=== PATIENT | male | born 1950 | race Caucasian/White ===

== ENCOUNTER → 2017-04-09 | Outpatient (CLI) | payer OTHER, MEDICARE ==
[~2017-04-09] VITALS: Ht 185.4 cm; Wt 115.1 kg
[~2017-04-09] MED LIST: ALBUTEROL2.5 MG/0.1 INH; AMOXICILLIN 50500 M1 PO; CLONAZEPAM 1 MG1 M1 PO; FLUOXETINE HCL10 M1 PO; GABAPENTIN600 M1 PO; KLONIPIN PO; KLONOPIN1 MG PO; METHADONE HCL5 MG PO; NEURONTIN 300300 M1 PO; NUCYNTA ER100 MG PO; NUCYNTA100 MG PO; OXYCODONE-ACET1 EAC2 PO; OXYCODONE-ACET1 EACH PO; OXYCONTIN10 M1 PO; OXYCONTIN20 M1 PO; TRILEPTAL 300300 MG PO; TRILEPTAL600 MG PO; ZPAK PO
--- NOTE | ~2017-04-09 | HPC ---
[facility] [place] [address] PAIN MANAGEMENT CONSULTATION Name: CHICA PEACOCK Room #: REG [facility] MMarieBob.#: [id number] Admission: 04/09/17 Attend Phys: Dillan Fortune MD Discharge: Date of : 48 Report #: [id number] THIS REPORT FOR: //name// CC: [facility] physician/PCP Dillan Lucero MD DATE OF SERVICE: 04/09/2017 CHIEF COMPLAINT: Facial pain. FOLLOWUP HISTORY: The patient is a 66-year-old gentleman who has had a number of surgeries. He indicates that he had a sinus infection. It was fungal in nature. This was in 2009. Since that time, he has had frontal sinus pain secondary damage of the nerves in this area. He has undergone a number of treatments. Pain has waxed and waned. At this juncture, he is having continued pain, which he describes as a 10/10. Pain is made worse with cold weather, cold drinks and makes activities of daily living difficult secondary to this. 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 He has seen Dr. Luis Garcia in our pain clinic. This was in 2013. He states that he had seen Dr. Sierra in the past. He had taken Nucynta, nortriptyline, Lyrica, zolpidem, and Neurontin. Dilaudid, fentanyl, morphine, Opana, and Narcan had been tried in the past as well. PHYSICAL EXAMINATION: Blood pressure 142/97, pulse 81, respiratory rate 16, room air saturation is 97, height 6 feet 1 inch, weight 251 pounds, and BMI is 35. The patient complains of pain and discomfort in his left supraorbital area. Complains of a loud ringing sound, which is constant. IMPRESSION: 1. Chronic intractable atypical face pain. 2. Symptoms consistent with peripheral neuropathy. RECOMMENDATIONS: We discussed the patient's condition with him for 35 minutes. Given that he has a very complex pain situation and Dr. Garcia had seen him and provided a number of interventions, we will have him follow up with Dr. Garcia in the near future. By: [id number] Dillan Fortune MD /nt
[2017-04-09 12:44] VITALS: BP 142/97
== END ==
LOC: PAIN 07:21
DX: R51 Headache (principal)

== ENCOUNTER → 2017-04-26 | Outpatient (CLI) | payer OTHER, MEDICARE | LOC: PAIN 07:08 | DX: G50.1 Atypical facial pain (principal) ==

== ENCOUNTER → 2017-05-10 | Outpatient (CLI) | payer OTHER, MEDICARE ==
[~2017-05-10] VITALS: Ht 185.4 cm; Wt 113.0 kg
[~2017-05-10] MED LIST changes: +IBUPROFEN 200200 M1 PO; +NEURONTIN600 MG PO; +REMERON15 MG PO
--- NOTE | ~2017-05-10 | HPC ---
[facility] [place] [address] PAIN MANAGEMENT CONSULTATION Name: CHICA PEACOCK [id number] Admission: 05/10/17 Attend Phys: Luis Garcia MD Discharge: Date of : 48 Report #: [id number] THIS REPORT FOR: //name// CC: [facility] physician/PCP Luis LEAHY MD DATE OF SERVICE: 05/10/2017 DATE OF REGISTRATION: 05/10/2017. REASON FOR VISIT: Followup visit for atypical facial pain and dysesthesia. SUBJECTIVE: The patient returns to the pain clinic today. I started him on a very small dose of methadone beginning at 2.5 mg increasing the dose gradually. He was unable to tolerate the medication, took it for only a couple of days and had sort of some bizarre side effects including feeling of claustrophobia and irritation. He discontinued it, and I do not think we will reinitiate therapy at a lower dose with methadone given the current climate for opioids. Please revert to previous dictations for a number of medicines that he has been on over the years under the care of other physicians including Dr. Jesus Sierra in [place]. He reports today that his pain or dysesthesia is 8/10. This is described as a loud, buzzing, or ringing sensation that occurs in the left frontal region, periorbital near the frontal sinus. It tends to be worse after sleep. He describes it as constant, although it varies in intensity. Often times, the pain is better by the end of the day. He falls asleep, and when he wakes up, it is back again. Other way that he described, it was like an electrical cord being plugged into the area above his eye. His affect is pleasant, but a bit depressed, and he acknowledges that he has had nervousness, depression and insomnia as well as these unusual headaches. He is currently not on any antidepressant medication and has had some trials with tricyclic antidepressants and SSRI medicines. CURRENT MEDICINES: Ibuprofen 200 mg b.i.d. and gabapentin 600 mg b.i.d. PHYSICAL EXAMINATION: GENERAL: Pleasant, but depressed affect. VITAL SIGNS: Blood pressure is 134/60, heart rate 77, respirations 16, and BMI is 32.9. HEENT: He has no palpable discomfort. No obvious external changes of the skin. There is no allodynia noted today. The conjunctivae are reddened bilaterally. Pupils are equal, round, and reactive to light. EOMs are intact. Mucous membranes are moist. [address] [address] PAIN MANAGEMENT CONSULTATION Name: CHICA PEACOCK [id number] Admission: 05/10/17 Attend Phys: Luis Garcia MD Discharge: Date of : 48 Report #: [id number] IMPRESSION: Atypical facial pain with dysesthetic ringing, buzzing; scored as an 8/10 on the pain intensity scale. RECOMMENDATIONS: I will give one final trial of medication. Then, I have suggested that he consider a consultation with Dr. Dwain Napoles. I am not sure if there is a neurosurgical approach to this, although there have been many recent breakthroughs in the use of deep brain stimulation which seems aggressive for this condition, but he reports that it is dramatic to him and affecting his life. I have initiated Remeron or mirtazapine at 7.5 mg at bedtime. We will increase perhaps to 1 full tablet of 15 mg at bedtime. If ineffective, he is instructed to try and continue the medication for up to 6 weeks. By: [id number] Luis Garcia MD /nt
[2017-05-10 12:38] VITALS: BP 134/60
== END | disposition home or self-care (01) ==
LOC: PAIN 07:24
DX: G50.1 Atypical facial pain (principal); Z68.32 Body mass index [BMI] 32.0-32.9, adult; Z79.899 Other long term (current) drug therapy; F32.9 Major depressive disorder, single episode, unspecified; Z87.891 Personal history of nicotine dependence

== ENCOUNTER → 2017-05-27 | Outpatient (CLI) | payer OTHER, MEDICARE ==
[~2017-05-27] VITALS: Ht 185.4 cm; Wt 117.0 kg
--- NOTE | ~2017-05-27 | HPC ---
[facility] [address] [place] [address] PAIN MANAGEMENT CONSULTATION Name: CHICA PEACOCK Room #: REG [facility] MMarie.#: [id number] Admission: 05/27/17 Attend Phys: Luis Garcia MD Discharge: Date of : 48 Report #: [id number] THIS REPORT FOR: //name// CC: [facility] physician/PCP Dwain Lucero MD DATE OF SERVICE: 05/27/2017 Followup visit for atypical facial pain and dysesthesias. The patient returns to pain clinic today for 25-minute consultation regarding medication. He continues to have low acceptance of his long chronic ongoing pain. Part of this is a very difficult diagnosis and difficult to understand exactly what the mechanism of his pain is. As described infrequently, it has a bizarre dysesthetic sensation with a feeling of claustrophobia, irritation and burning. He has a hard time describing it to me. He oftentimes uses sounds such as buzzing or ringing occurring in the left frontal region near the frontal sinus. It is described thoroughly throughout my record. We tried a number of different medications and most recently, I placed him on Remeron, which is now at 15 mg at bedtime. He actually feels that this antidepressant may be helping some. He has a plan to follow with Dr. Lucero. I have also had a lengthy discussion with him today about managing his medication with small amounts of an opioid medication such as oxycodone. We had a long talk about the opioid crisis. As he review his medications and uses in the past, opioids have provided some of the best relief for him with a few side effects. By using 5 mg of oxycodone 3 times daily, would use about 20 morphine milligram equivalents, a very modest dose and I think that if he manages this carefully, it will reduce his sensations of discomfort enough that he can move forward. I counseled him extensively today about learning to live with his sensation and to accept this as a chronic condition that he will probably have to deal with indefinitely. I think that is important I do not think he has moved to that point yet. We certainly have found no quick answer or care for this intractable discomfort. PHYSICAL EXAMINATION: He seemed a little more resigned to our discussion today. His blood pressure 154/76, heart rate 82, respirations 20. BMI of 34. He has bilateral scleral and conjunctival redness. It is a little better today. His pupils are around, reactive to light. EOMs are intact. Mucous membranes are moist. [facility] [address] [place] [address] PAIN MANAGEMENT CONSULTATION Name: CHICA PEACOCK Room #: REG [facility].#: [id number] Admission: 05/27/17 Attend Phys: Luis Garcia MD Discharge: Date of : 48 Report #: [id number] IMPRESSION: Atypical facial pain with dysesthesia. PLAN: Continue on the Remeron 50 mg at bedtime and oxycodone 5/325 one-half to one tablet t.i.d. Followup visit in 2 months. Two months of medication were provided. By: [id number] Luis Garcia MD /nt
[2017-05-27 12:50] VITALS: BP 154/76
== END ==
LOC: PAIN 06:37
DX: R20.8 Other disturbances of skin sensation (principal)

== ENCOUNTER → 2017-08-13 | Outpatient (CLI) | payer OTHER, MEDICARE ==
[~2017-08-13] VITALS: Ht 185.4 cm; Wt 113.0 kg
[~2017-08-13] MED LIST changes: +DOLOPHINE HCL5 MG PO; +NUCYNTA ER200 MG PO; +TRAMADOL 50 MG50 MG PO; +TYLENOL EXTRA500 MG PO; +XTAMPZA ER9 MG PO
--- NOTE | ~2017-08-13 | HPC ---
[facility] [address] [place] [address] PAIN MANAGEMENT CONSULTATION Name: MADONNACHICA Room #: REG [facility] MMarie.#: [id number] Admission: 08/13/17 Attend Phys: Laureano Taylor DO Discharge: Date of : 49 Report #: [id number] THIS REPORT FOR: //name// CC: [facility] physician/PCP Laureano Taylor PAIN CLINIC NOTE The patient is a 66-year-old gentleman, typically treated by Dr. Luis Garcia for left hemifacial atypical pain requiring complex medication management. I saw the patient one time on 07/16/2017. We elected to trial rotation, he has been on a multiplicity of medications originally from Dr. Andrew Sierra including Nucynta. He had been fairly aggressively dosed with this 100 mg up to 6 a day. He had filled Embeda and Fentora as well. He had a ketamine trial with no efficacy. Last visit, he was taking oxycodone at 5 mg t.i.d. with some help, but he has end of dose failure. We elected to trial a long-acting oxycodone, Xtampza ER 9 mg b.i.d. Tramadol for breakthrough pain. The patient returns to pain clinic today noting that he did have sinus surgery with Dr. Lucero in July. He stopped taking his Remeron. Still complains of a "buzzing" sensation in his head and atypical left hemifacial pain. He feels that the Xtampza ER is not helpful. He rates his pain as 6-7 on a VAS. Physical exam is essentially unchanged from last visit. We again had a prolonged visit from 10:42-11:10 greater than 50% of the 25+ minutes visit was spent counseling the patient. The patient claims that Dr. Lucero recommended that he start on clonazepam and go back to short acting opiates. I find this to be not a great advice. As I noted in my prior dictation concern for aggressive use of short-acting opiates, which has been pursued with the patient in the past can promote habituation issues. After a long discussion, we have elected to trial rotating back to Nucynta, but simply use a 200 mg extended release tablet. If, however, this causes an onerous cost to the patient, I have also provided the patient with a prescription for methadone 5 mg to be used t.i.d. I will have the patient follow up in 4 weeks for reevaluation. We will have him bring back whichever prescription was not filled. <ELECTRONICALLY SIGNED> By: Laureano Taylor DO 08/18/17 [id number] Laureano Taylor DO /nt
[2017-08-13 10:26] VITALS: BP 129/72
== END ==
LOC: PAIN 06:57
DX: G50.1 Atypical facial pain (principal); Z79.899 Other long term (current) drug therapy

== ENCOUNTER → 2017-09-09 | Outpatient (CLI) | payer OTHER, MEDICARE ==
[~2017-09-09] VITALS: Ht 185.4 cm; Wt 112.5 kg
[~2017-09-09] MED LIST changes: +OXYCODONE HCL E20 MG PO; +OXYCODONE HCL20 M1 PO; +PROZAC10 M1 PO
--- NOTE | ~2017-09-09 | HPC ---
[facility] [address] [place] [address] PAIN MANAGEMENT CONSULTATION Name: MADONNACHICA LERMA Room #: REG [facility] MMarie.#: [id number] Admission: 09/09/17 Attend Phys: Laureano Taylor DO Discharge: Date of : 48 Report #: [id number] THIS REPORT FOR: //name// CC: [facility] physician/PCP Jesus Taylor HISTORY OF PRESENT ILLNESS: The patient is a 67-year-old gentleman, typically treated by Dr. Luis Garcia for left hemifacial atypical pain requiring complex medication management. Dr. Garcia asked me to see the patient if I had any thoughts for management. I initially saw him on 07/16/2017. At that time, we trialled converting short-acting hydrocodone to long-acting OxyContin. This is not covered by his insurance, so I wrote for Xtampza ER 9 mg b.i.d. The patient returned stating that he felt that that was not efficacious. Last visit on 08/13/2017 I wrote for 2 prescriptions, one for Nucynta ER 200 mg b.i.d., if this is not covered by insurance methadone 5 mg t.i.d. He returns to pain clinic today, we had a prolonged visit, greater than 25 minutes was spent reviewing therapeutic options, medical history and issues. The patient states he took the methadone for several days, actually 10 days, but developed subjective sensation of anxiety. He states he did not have good pain relief. He states his pain is still 10 on a VAS. He discontinued the methadone. He took a few Xtampza he had leftover, generally 1 or less a day. He returns to pain clinic today. He reiterates that his ENT surgeon has recommended clonazepam 2 mg t.i.d. (?). I do not have any records from Dr. Lcuero' office regarding this. Per the patient, he also suggested that we resume short-acting opiates. When the patient came to our practice and initially saw Dr. Garcia in March of last year (he had prior been seen in our clinic back in 11/2013 and was lost to follow up for 3 years), he had been followed by Dr. Andrew Sierra who had aggressively escalated the patient's opiate use. He had been on Zohydro, Exalgo, Nucynta at relatively high doses, had even been given Subsys. Dr. Garica started him back on methadone 5 mg t.i.d. in order to avoid opiate withdrawal and afford some help with neuropathic pain, started at low dose 2.5 mg. The patient states that he felt claustrophobia and irritation. He had the same side effects he states again with the last trial of methadone at my prescription. PHYSICAL EXAMINATION: Today is relatively unchanged. GENERAL: A pleasant 67-year-old gentleman, BMI is 32.7 kilograms per meter squared. Alert and oriented to person, place and time, judged to be a reasonable historian. [address] [address] PAIN MANAGEMENT CONSULTATION Name: CHICA PEACOCK Room #: REG [facility] Jonny#: [id number] Admission: 09/09/17 Attend Phys: Laureano Taylor, DO Discharge: Date of : 49 Report #: [id number] VITAL SIGNS: Blood pressure is little bit elevated 173/79, pulse 100, respirations 16. NEUROLOGIC: Cranial nerves 2-12 are grossly intact. Has a little bit of exophthalmus. Subjective pain, left hemifacial. Describes a loud ringing sensation in his ear. No appreciable cervical adenopathy. Upper extremity strength is preserved, gait is tandem. We reviewed the fact that opiate medications are being used to provide analgesia adequate to support activities of daily living, not attempting to achieve a specific pain score on the 0-10 Visual Analog Scale. The current opiate medications are providing sufficient analgesia to allow the patient to participate in activities of daily living. The patient is not exhibiting any aberrant behavior suggestive of drug diversion. The patient is not having any adverse reactions to medications. The patient is not suffering from daytime somnolence or mental acuity changes. The patient is managing opiate-induced constipation with appropriate [id number] agents and dietary considerations. The patient was counseled on concern for caution with operating a motor vehicle while using opiate medications. A physical exam was performed and the patient's functional status was evaluated. All patients with back pain were advised against the bed rest greater than 4 days and were advised to return to normal activities. Pain score assessment was noted and the treatment plan was reviewed with the patient. All current medications, both prescribed and OTC were reviewed and reconciled on the electronic medical record. Tobacco screening was accomplished and smoking cessation was advised when indicated. BMI was noted and diet/exercise modification was recommended for all patients following outside normal parameters. I reviewed with the patient today their responsibilities to safeguard prescription medications, reviewed their responsibility to utilize medications only as prescribed by the physician. They are to seek and receive pain medications only from 1 physician group ([facility]). They are to use 1 pharmacy and keep the clinic informed if they change pharmacies. Their responsibilities include making followup visits in a timely fashion and to avoid abrupt discontinuation of medication usage. Their responsibilities further include bringing their medications (bottles from the pharmacy with residual pills) to the visit for possible confirmation of pill counts and the patient understands it is their responsibility to submit to random drug screens to ensure both that the medications prescribed are present, and that no other controlled substances are present. All prescriptions provided today were generated electronically. ASSESSMENT AND PLAN: Long discussion with the patient today. Ultimately, we took back his methadone tablets. I suggested that he trial oxycodone extended release again, I have taken the liberty of writing for higher dose, OxyContin [address] [address] PAIN MANAGEMENT CONSULTATION Name: MADONNACHICA AYON Room #: REG CL Jonny#: [id number] Admission: 09/09/17 Attend Phys: Laureano Taylor DO Discharge: Date of : 48 Report #: [id number] mg b.i.d. (equivalent to 60 mg of morphine daily). This will not afford pain relief, but hopefully some slight diminution in pain. Suggest that once he is stable on this for 3-4 days, he may trial low dose clonazepam if prescribed by Dr. Luceor, I would recommend he not use a 2 mg tablet, simply cut in half and try 1 mg up to b.i.d. Issued extreme caution about concurrent use of opiate analgesics and benzodiazepines. Can cause untoward sedation, respiratory depression and there seems to be some Synergy regarding habituation concerns. Again, he has been rapidly titrated on other opiate analgesics with a rapid tolerance and habituation in the past. I suggest he follow up with Dr. Garcia after this, as I have no further options. I agree with Dr. Garcia's suggestion that we should refer him to Dr. Napoles or Dr. Harper for consideration for other novel perhaps "last ditch" therapies for pain management including deep brain stimulation or perhaps even cingulotomy, the former being reversible, the latter being permanent. Obviously, the least interventional modality would be preferred. The patient unfortunately has come to his chronic pain due to multiple functional endoscopic surgeries and trauma to some facial nerves. These pain generators are likely permanent. Discharged in good and stable condition after prolonged visit, greater than 25 minutes was spent counseling the patient. I did issue OxyContin 20 mg b.i.d. prescription to the patient. Follow up with Dr. Garcia or myself in 30 days for reevaluation. Again, if this does not afford adequate relief, we will likely simply renew the OxyContin 20 mg for 30 days and seek a neurosurgical consultation. <ELECTRONICALLY SIGNED> By: Laureano Taylor DO 09/10/17 0954 [id number] Laureano Taylor DO /nt
[2017-09-09 10:52] VITALS: BP 173/79
== END ==
LOC: PAIN 06:40
DX: G50.1 Atypical facial pain (principal); Z79.899 Other long term (current) drug therapy

== ENCOUNTER → 2017-10-04 | Outpatient (CLI) | payer OTHER, MEDICARE ==
[~2017-10-04] VITALS: Ht 185.4 cm; Wt 116.6 kg
--- NOTE | ~2017-10-04 | CRIT ---
[facility] [place] [address] CRITICAL CARE NOTE Name: CHICA PEACOCK Room #: REG [facility] M.R.#: [id number] Admission: 10/04/17 Attend Phys: Luis Garcia MD Discharge: Date of : 48 Report #: [id number] THIS REPORT FOR: //name// CC: [facility] physician/PCP Dwain Lucero MD DATE OF SERVICE: 10/04/2017 Followup visit for atypical facial pain. HISTORY OF PRESENT ILLNESS: The patient was in the clinic today for a 25-minute follow up with his . He continues to have ongoing symptoms of atypical frontal facial nerve pain in his sinuses that is described as a ringing type headache and electrical noise that is extremely irritated and aggravating and he describes it as pain. He has tried desperately to find a cure for this unusual discomfort. His most recent efforts included a sinus surgery with Dr. Lucero. He tells me that the surgery was not intended to help pain, but to help with breathing. He reports that after surgery with clearing of his sinuses that the nerve was "more sensitive without as much protection" and his pain was worse for a period of time up to 03/08. He has often told me that his pain is improved when he has sinus congestion. He has been on multiple medication trials and we reviewed them today. He has had trials with Embeda, methadone, Zohydro, oxycodone, Ketamine, Nucynta and fentanyl. All medications have been felt to be ineffective other than some benefit that he gets from oxycodone. We have a good success with methadone for the treatment of trigeminal neuralgias and atypical facial pains, but disappointingly he finds himself claustrophobic with methadone and has not been able to continue it. He has had multiple trials of anti-seizure medications without good effect. He has taken intermittently a benzodiazepine up to 2 mg of clonazepam with mixed success. He is off of that at this time. He is not currently on an antidepressant. He remains depressed today. His affect is depressed. He broke into tears at one point describing how he felt that he had disappointed his by no longer being able to enjoy life with her. He has had to give up his work. He feels loss and despondent. His current pain medication is OxyContin 20 mg twice a day. This has provided some measure of relief, but unfortunately despite the long acting effect of the medication, he finds that the duration of response is only about 3-4 hours. He is on an opioid agreement established earlier to allow us to provide medication safely. [address] [address] CRITICAL CARE NOTE Name: CHICA PEACOCK Room #: REG [facility].#: [id number] Admission: 10/04/17 Attend Phys: Luis Garcia MD Discharge: Date of : 48 Report #: [id number] PHYSICAL EXAMINATION: GENERAL: Today, he is severely depressed. His affect is quiet and intensive. VITAL SIGNS: His blood pressure is 155/93, heart rate 75, O2 sat 97, BMI is 33.3. Pain intensity is 7/10. HEENT: His conjunctivae are erythematous, but less so than they have been in the past. He has mild exophthalmos. He has tenderness bilaterally over the sinuses. Nares are clear. IMPRESSION: 1. Atypical facial pain emanating from the sinuses and chronic frontal sinusitis and headaches. 2. Management of high risk medications. 3. Progressive depression. RECOMMENDATIONS: 1. We will continue his OxyContin as the only medication he has found that he can tolerate with lasting effects and tolerable side effects. 2. Lengthy discussion today about the biopsychosocial features associated with chronic intractable pain and I have recommended Prozac. He has had several other antidepressant trials, but never a straight SSRI trial and our initial dosing will start at 10 mg, increasing to 20 mg over the course of the next month. We may increase this to 40 as tolerated. He was told to stop the medication if he notices he is worse or more despondent. 3. I will discuss the case when I can with Dr. Napoles. I am not sure he is a candidate for microvascular decompression. Dr. Napoles may have something more exotic in mind if we discuss this further. I know he has been doing some deep brain stimulation. I have also suggested in the past that the patient consider a possible trip to the [facility] for another opinion, the Neurology Department there may have some suggestions. Follow up as needed or in the next 2-3 months for medication management. <ELECTRONICALLY SIGNED> By: Luis Garcia MD 10/27/17 1640 [id number] Luis Garcia MD /nt
[2017-10-04 10:49] VITALS: BP 155/93
== END ==
LOC: PAIN 07:04
DX: J32.1 Chronic frontal sinusitis (principal); F32.89 Other specified depressive episodes; Z79.899 Other long term (current) drug therapy

== ENCOUNTER → 2018-01-10 | Outpatient (CLI) | payer OTHER, MEDICARE ==
[~2018-01-10] VITALS: Ht 185.4 cm; Wt 115.0 kg
--- NOTE | ~2018-01-10 | HPC ---
[facility] [place] [address] PAIN MANAGEMENT CONSULTATION Name: CHICA PEACOCK Room #: REG [facility] M.R.#: [id number] Admission: 01/10/18 Attend Phys: Luis Garcia MD Discharge: Date of : 48 Report #: [id number] THIS REPORT FOR: //name// CC: FAM physician/PCP Dwain Lucero MD DATE OF SERVICE: 01/10/2018 Followup visit for atypical facial pain/trigeminal neuralgia. The patient returns to the pain clinic today with his . He is here today for medication renewal. I provided him with OxyContin 20 mg b.i.d. for an MME of 60. His opioid agreement was reviewed and he understands the importance of safeguarding his medications. No other physicians provide opioids for him. He continues to see Dr. Lucero who has suggested that there may be a sinus etiology, but sinus surgery did not help. Dr. Lucero recently provided an injection in his nose, which he says was an injection of the trigeminal nerve. If so, this would be a distal branch of the second division of the trigeminal nerve. The patient reports that for about 30 minutes, his pain was alleviated and all the ringing in his ear went away. Dr. Lucero apparently has a followup injection planned as well. I am not exactly ____ where he is injecting, so I am hopeful that the records will show in our clinic. His multiple medication trials throughout multiple physicians are listed throughout the record. At this time, we will continue him on OxyContin, which has provided modest relief. At last visit to our clinic, he was crying and depressed. The counseling of that visit is reviewed today. I had started him on sertraline 10 mg with instructions to increase it to 20 and possibly 40. He had had other antidepressant trials in the past. Like many of the medicines that he has been given over the years, he did not continue it more than about 2-3 weeks and discontinued it because it was giving him difficulty sleeping and he had not seen improvement. He is no longer on an antidepressant. I reviewed his recommendation to see Dr. Napoles. He has seen many neurologists and I thought Dr. Napoles may consider him a candidate for microvascular decompression. He saw one of the nurse practitioners, midlevel nurses, who assists Dr. Napoles and no specific recommendations were provided. He was told that his x-rays would be reviewed with Dr. Napoles. I have also suggested that he may consider another trip to the [facility]. He has already been seen once there by the Department of Neurology [place] [address] PAIN MANAGEMENT CONSULTATION Name: CHICA PEACOCK Room #: REG [facility] Jonny#: [id number] Admission: 01/10/18 Attend Phys: Luis Garcia MD Discharge: Date of : 48 Report #: [id number] have good therapeutic options for him. PHYSICAL EXAMINATION: GENERAL: Today, he is less depressed. VITAL SIGNS: His blood pressure is 136/75, heart rate 79 and respirations 16. His BMI is 33.5. HEENT: There is less conjunctival redness noted today. He has mild exophthalmus. Bilateral tenderness over the frontal sinuses as well as in the ethmoid region. Tenderness along the left side of the nose is noted as well. IMPRESSION: 1. Atypical facial pain. 2. Chronic depression and anxiety. 3. Management of opioid medication under opioid agreement. CDC guidelines were reviewed. Opioid agreement was also discussed and the importance of safeguarding medication. He has some constipation, which has been managed with over the counter regimens. Dr. Lucero gave him Movantik, but typical of the patient he read the package insert and decided there were too many side effects and has not taken the samples. He will continue with simple measures. May consider transitioning to another opioid and possibly tapering his dose to below the 50 morphine milligram level if possible. By: [id number] Luis Garcia MD /nt
[2018-01-10 11:27] VITALS: BP 136/75
== END ==
LOC: PAIN 07:10
DX: G50.1 Atypical facial pain (principal); F32.9 Major depressive disorder, single episode, unspecified; F41.9 Anxiety disorder, unspecified

== ENCOUNTER → 2018-07-07 | Outpatient (CLI) | payer OTHER, MEDICARE ==
[~2018-07-07] VITALS: Ht 185.4 cm; Wt 115.9 kg
--- NOTE | ~2018-07-07 | HPC ---
[facility] [place] [address] PAIN MANAGEMENT CONSULTATION Name: CHICA PEACOCK Room #: REG [facility] M..#: [id number] Admission: 07/07/18 Attend Phys: Luis Garcia MD Discharge: Date of : 48 Report #: [id number] THIS REPORT FOR: //name// CC: [facility] physician/PCP Luis Lucero MD DATE OF SERVICE: 07/07/2018 Followup visit for atypical facial pain/trigeminal neuralgia. The patient returns to Pain Clinic today for renewal of medication. We have settled on oxycodone 20 mg extended release tablet twice daily. This equates to a morphine milligram equivalency of 60. Nothing takes pain completely away, but this medication has been the most tolerated and most helpful medication of those that we have tried. We reviewed once again a number of opioids, muscle relaxants, anti-seizure drugs and antidepressants that we have tried over the course of the last several years. He is currently satisfied with his current regimen. We talked new medications may be coming on the market that might be worth of a trial. We talked about procedural techniques. I sent him off to see if he might be a candidate for neurosurgical ablative procedure. He saw Dr. Rasheed in the Neurosurgery's office and they did not recommend any surgical treatment at this time. PQRS shows a depressed gentleman. Blood pressure 122/69, heart rate 75, respirations 16. BMI is 33.7. Pain intensity is 8/10. He is not a fall risk. He is on no blood thinners. He is not treated for hypertension. He is on an opioid agreement signed first on 04/26/2017. He is considered low risk by the ORT for any sort of misuse or abuse. He denies use of tobacco or alcohol. He is retired. IMPRESSION: 1. Chronic atypical facial pain/trigeminal neuralgia. 2. Underlying depression. 3. Opioid medications provided under terms of written agreement. Follow up in 3 months. By: [id number] Lusi Garcia MD /nt
[2018-07-07 13:13] VITALS: BP 126/64
== END ==
LOC: PAIN 06:29
DX: G50.0 Trigeminal neuralgia (principal); G89.29 Other chronic pain; G50.1 Atypical facial pain; F32.9 Major depressive disorder, single episode, unspecified; Z79.891 Long term (current) use of opiate analgesic

== ENCOUNTER → 2018-09-08 | Outpatient (CLI) | payer OTHER, MEDICARE ==
[~2018-09-08] VITALS: Ht 185.4 cm; Wt 111.5 kg
[~2018-09-08] MED LIST changes: +HYSINGLA ER60 MG PO
--- NOTE | ~2018-09-08 | HPC ---
[facility] [address] [place] [address] PAIN MANAGEMENT CONSULTATION Name: CHICA PEACOCK Room #: REG Vikram Darryl.#: [id number] Admission: 09/08/18 Attend Phys: Luis Garcia MD Discharge: Date of : 48 Report #: [id number] THIS REPORT FOR: //name// CC: FAM physician/PCP Luis Garcia DATE OF SERVICE: 09/08/2018 Followup visit for atypical facial pain, trigeminal neuralgia. The patient presents to the pain clinic today with his to discuss medication. He has been treating his atypical pain now for nearly 8 years and has been to multiple physicians, even to the [facility]. He has been on multiple trials of medication and has received a most favorable benefit from the use of OxyContin 20 mg b.i.d. He also takes gabapentin 300 mg 3 times daily. His insurance company will flat out not pay for OxyContin because of the stigma attached to it despite the fact that this is his most beneficial drug. OxyContin has now an abuse deterrent, but all of the bad press that it has received over the years has kept it out of the hands of patients who are using it carefully under the direction of a physician in a reputable pain clinic. They have checked the formulary and he is a candidate for Hysingla 60 mg would be equal to his current dose of oxycodone and morphine milligram equivalents. I have agreed to give him a trial of that for 1 month. 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 PQRS REVIEW: 1. No history of osteoarthritis. 2. Pain intensity is 7/10 today. Average daily score is 7. He says he has a 10/10 every morning and when we discussed the inaccuracy of the pain score, he was adamant about the intensity of his pain in the mornings. He is not a fall risk. He is on no blood thinners. He is not treated for hypertension. He is on an opioid agreement and according to the opioid risk tool, he is at low risk for addiction. He does not smoke nor drink alcohol. PHYSICAL EXAMINATION: GENERAL: Demonstrates mildly depressed gentleman. VITAL SIGNS: Blood pressure is 157/90, heart rate is 80, respirations 18. HEENT: He has mild exophthalmos. He has light touch discomfort along the right lateral aspect of the nose. Nares are clear. Mucous membranes are moist. He has mild allodynia in the V2 distribution. IMPRESSION: 1. Chronic atypical facial pain/trigeminal neuralgia. 2. Chronic depression. [facility] [address] [place] [address] PAIN MANAGEMENT CONSULTATION Name: CHICA PEACOCK Room #: REG [facility].#: [id number] Admission: 09/08/18 Attend Phys: Luis Garcia MD Discharge: Date of : 48 Report #: [id number] 3. Opioid medications under terms of an opioid agreement. PLAN: I have written for Gooda as a trial for 1 month. If it is successful in managing his symptoms, then I will provide an additional prescription for him for 4 and 8 weeks and we will see him back in the clinic in 3 months. Buccal drug screen was ordered per our opioid agreement. By: [id number] Luis Garcia MD /nt
[2018-09-08 09:27] VITALS: BP 157/90
--- NOTE | 2018-09-08 09:32 | NUR ---
Pain Clinic Assessment: 1. History of Osteoarthritis: Not Applicable History of Rheumatoid Arthritis: Not Applicable 2. Height: 6 ft. 1 in. 185.4 cm. Weight: 245.8 lb. oz. 111.494 kg. Patient's BMI: 32.4 3. Vital Signs: BP: 157/90 Pulse: 80 Resp: 18 Temp: 02 Sat: 97 ECG Mon: 4. Pain Intensity: 7 5. Fall Risk: Dizziness: N Needs help standing or walking: N Fallen in the last 3 months: N Fall risk comments: 6. Patient on Blood Thinner: None 7. History of Hypertension: N 8. Opioid Therapy greater than 6 weeks: N Opiate Contract Signed: 04/26/17 9. Risk Assessment Tool Provided: 0-LOW RISK 10. Functional Assessment Tool: 11. Recreational Drug Use: Never Drug Type: Tobacco Use: Former Smoker Tobacco Type: Amount or Packs/day: How Many Years: Alcohol Use: No Frequency: Quant:
== END ==
LOC: PAIN 06:57
DX: G50.0 Trigeminal neuralgia (principal); G50.1 Atypical facial pain; F32.9 Major depressive disorder, single episode, unspecified; Z79.891 Long term (current) use of opiate analgesic; Z79.899 Other long term (current) drug therapy

== ENCOUNTER → 2018-10-20 | Outpatient (CLI) | payer OTHER, MEDICARE ==
[~2018-10-20] VITALS: Ht 185.4 cm; Wt 110.4 kg
[~2018-10-20] MED LIST changes: +HYDROCODON-ACE1 EAC5 PO
[2018-10-20 09:32] VITALS: BP 143/81
--- NOTE | 2018-10-20 09:49 | NUR ---
Pain Clinic Assessment: 1. History of Osteoarthritis: Not Applicable History of Rheumatoid Arthritis: Not Applicable 2. Height: 6 ft. 1 in. 185.4 cm. Weight: 243.4 lb. oz. 110.406 kg. Patient's BMI: 32.1 3. Vital Signs: BP: 143/81 Pulse: 85 Resp: 16 Temp: 02 Sat: 97 ECG Mon: 4. Pain Intensity: 8 5. Fall Risk: Dizziness: Y Needs help standing or walking: N Fallen in the last 3 months: N Fall risk comments: 6. Patient on Blood Thinner: None 7. History of Hypertension: N 8. Opioid Therapy greater than 6 weeks: N Opiate Contract Signed: 04/26/17 9. Risk Assessment Tool Provided: 0-LOW RISK 10. Functional Assessment Tool: 11. Recreational Drug Use: Never Drug Type: Tobacco Use: Former Smoker Tobacco Type: Amount or Packs/day: How Many Years: Alcohol Use: No Frequency: Quant:
--- NOTE | 2018-10-21 12:32 | HPC ---
[facility] [address] [place] [address] PAIN MANAGEMENT CONSULTATION Name: MADONNACHICA Room #: REG [facility] MCitlalli.#: [id number] Admission: 10/20/18 ������������������ Attend Phys: Judit Carrillo Discharge: ������������������ Date of : 48 Report #: [id number] THIS REPORT FOR: //name// CC: Judit Crarillo [facility] physician/PCP DATE OF SERVICE: 10/20/2018 CHIEF COMPLAINT: Atypical facial pain, trigeminal neuralgia. HISTORY OF PRESENT ILLNESS: The patient returns with his today regarding his medications. He has had a trial for the last month and a half on Hysingla 60 mg b.i.d. The patient had to trial that medication since his insurance company would no longer cover OxyContin that he was well controlled on. The patient tells me that he tried this Hysingla for over a month. He had GI upset. He tells me that he felt like he had the flu. He even went to his primary physician and was put on antibiotics thinking that was the flu, but that did not resolve any of his body aches. He tells me that sometimes he would sit down and "pass out" for at least 4 hours in his chair, sleep most of the day and then get up and sleep all night as well. When he was taking this medication, he told me he felt like he was "going to ." He did fill his second month of medicine to continue to try it, but he stopped 4 days ago and he tells me that he is feeling so much better, all that achy and soreness is gone. He though does still have his left side of his nose buzzy electrical feeling that he has always had. Rates his pain score at 8/10 today, but feels like the medication symptoms that he was having from the Hysingla are gone. The patient has requested to go back on OxyContin or maybe hydrocodone, which he had used in the past. He denies any problems with constipation and since off the medicine does not have the daytime sleepiness issues he had. ALLERGIES: No known drug allergies. CURRENT MEDICATION: Advil 200 mg p.r.n., Tylenol Extra Strength 500 mg, 1000 mg as needed, gabapentin 900 mg 3 times a day and Hysingla 60 mg daily. PQRS: 1. He has no history of osteoarthritis or rheumatoid arthritis. 2. Height is 6 feet 1 inch, weight is 243, BMI is 32. 3. Vital signs: 143/81, pulse is 85, respirations 16, oxygen sat 97%. 4. Pain score is 8/10. 5. Fall risk: Denies dizziness, does not need any help walking or standing, has not fallen in the last 3 months. 6. The patient is not on any blood thinners and does not take medicine for hypertension. 7. Opioid therapy is greater than 6 weeks, therefore an opioid signed contract is on the chart. [address] [address] PAIN MANAGEMENT CONSULTATION Name: CHICA PEACOCK Room #: REG Vikram Fuller#: [id number] Admission: 10/20/18 ������������������ Attend Phys: Judit Carrillo Discharge: ������������������ Date of : 48 Report #: [id number] 8. Risk assessment tool is low. Functional assessment is 39/70. 9. Recreational drug use, he denies. He is a former smoker and does not drink alcohol. Did check the prescription monitoring system, the patient is filling appropriately with his medications. The patient tells me he safeguards them. He did bring back the refill of his second month of medications to be destroyed here today, which we did following protocol and we destroyed his 8-week prescription. PHYSICAL EXAMINATION: GENERAL: This is a well-developed, well-nourished, slightly depressed gentleman who appears his stated age. His affect is slightly flat. He is alert and orientated x 3. HEENT: Mild exophthalmus. He complains of light touch pain along his right lateral aspect of his nose. Mucous membranes are moist. Hearing is adequate. NECK: No JVD or adenopathy. MUSCULOSKELETAL: Not assessed for his pain today. IMPRESSION: Chronic atypical facial pain, trigeminal neuralgia, chronic depression and opioid medication under terms of written opioid agreement. We reviewed the fact that opiate medications are being used to provide analgesia adequate to support activities of daily living, not attempting to achieve a specific pain score on the 0-10 Visual Analog Scale. The current opiate medications are providing sufficient analgesia to allow the patient to participate in activities of daily living. The patient is not exhibiting any aberrant behavior suggestive of drug diversion. The patient is not having any adverse reactions to medications. The patient is not suffering from daytime somnolence or mental acuity changes. The patient is managing opiate-induced constipation with appropriate gfqc-bji-xigyxkb agents and dietary considerations. The patient was counseled on concern for caution with operating a motor vehicle while using opiate medications. A physical exam was performed and the patient's functional status was evaluated. All patients with back pain were advised against the bed rest greater than 4 days and were advised to return to normal activities. Pain score assessment was noted and the treatment plan was reviewed with the patient. All current medications, both prescribed and OTC were reviewed and reconciled on the electronic medical record. Tobacco screening was accomplished and smoking cessation was advised when indicated. BMI was noted and diet/exercise modification was recommended for all patients following outside normal parameters. I reviewed with the patient today their responsibilities to safeguard prescription medications, reviewed their responsibility to utilize medications only as prescribed by the physician. They are to seek and receive pain medications only from 1 physician group ([facility]). They are to use 1 [facility] [address] [place] [address] PAIN MANAGEMENT CONSULTATION Name: CHICA PEACOCK Room #: REG [facility] Darryl.#: [id number] Admission: 10/20/18 ������������������ Attend Phys: Judit Carrillo Discharge: ������������������ Date of : 48 Report #: [id number] pharmacy and keep the clinic informed if they change pharmacies. Their responsibilities include making followup visits in a timely fashion and to avoid abrupt discontinuation of medication usage. Their responsibilities further include bringing their medications (bottles from the pharmacy with residual pills) to the visit for possible confirmation of pill counts and the patient understands it is their responsibility to submit to random drug screens to ensure both that the medications prescribed are present, and that no other controlled substances are present. All prescriptions provided today were generated electronically. PLAN: 1. We discussed treatment options with the patient today. He tells me that he had significant side effects from the Hysingla and had stopped those as described above and the symptoms have disappeared. The patient has had longstanding chronic atypical facial pain that he has tried Xtampza that was ineffective at controlling his pain. Methadone made him very nervous, anxious feeling. Nucynta, the cost was very high, it did work in taking care of his pain, but then he was unable to get it covered for insurance purposes. Embeda was ineffective in controlling his pain. Oxycodone did help too, but chose to be on a long-acting medication. We will trial this patient on hydrocodone 10/325 up to 4 tablets a day to see if that is helpful. If this is helpful in controlling his pain, we will continue this medicine. If not, we will try to do an appeal process for his OxyContin, which was effective in helping him with his pain control, but his insurance company refused to pay for it stating not on the formulary. 2. The patient did return Hysingla 60 mg, #90 tablets that were destroyed and a prescription of 8-week medication that was destroyed as well. 3. The patient will follow up in 1 month time for an appointment to evaluate how he is doing. Dr. Luis Garcia was present during part of this conversation today and seen as well as collaborated with his care. ��������������������������������������������� <ELECTRONICALLY SIGNED> ���������������������������������������� By: Judit Carrillo ��������������������������������������������� 10/21/18 [id number] Judit Carrillo /chinedu
== END ==
LOC: PAIN 10-17 08:51
DX: G50.0 Trigeminal neuralgia (principal); F32.9 Major depressive disorder, single episode, unspecified; Z79.899 Other long term (current) drug therapy; Z79.891 Long term (current) use of opiate analgesic

== ENCOUNTER → 2018-12-15 | Outpatient (CLI) | payer OTHER, MEDICARE ==
[~2018-12-15] VITALS: Ht 185.4 cm; Wt 104.5 kg
[2018-12-15 12:56] VITALS: BP 118/80
--- NOTE | 2018-12-15 13:17 | NUR ---
Pain Clinic Assessment: 1. History of Osteoarthritis: Not Applicable History of Rheumatoid Arthritis: Not Applicable 2. Height: 6 ft. 1 in. 185.4 cm. Weight: 230.4 lb. oz. 104.509 kg. Patient's BMI: 30.4 3. Vital Signs: BP: 118/80 Pulse: 77 Resp: 16 Temp: 02 Sat: 96 ECG Mon: 4. Pain Intensity: 8-9 5. Fall Risk: Dizziness: N Needs help standing or walking: N Fallen in the last 3 months: N Fall risk comments: 6. Patient on Blood Thinner: None 7. History of Hypertension: N 8. Opioid Therapy greater than 6 weeks: N Opiate Contract Signed: 04/26/17 9. Risk Assessment Tool Provided: 0-LOW RISK 10. Functional Assessment Tool: 11. Recreational Drug Use: Never Drug Type: Tobacco Use: Former Smoker Tobacco Type: Amount or Packs/day: How Many Years: Alcohol Use: No Frequency: Quant:
--- NOTE | 2018-12-19 07:49 | HPC ---
[facility] [address] [place] [address] PAIN MANAGEMENT CONSULTATION Name: CHICA PEACOCK [id number] Admission: 12/15/18 ������������������ Attend Phys: Judit Carrillo Discharge: ������������������ Date of : 48 Report #: [id number] THIS REPORT FOR: //name// CC: Judit Barrera MD [facility] physician/PCP DATE OF SERVICE: 12/15/2018 CHIEF COMPLAINT: Atypical facial pain, trigeminal neuralgia. HISTORY OF PRESENT ILLNESS: The patient returns to the pain clinic today with his , wanting to discuss options for pain management. He tells me that he had been doing well with his OxyContin, which we had to restart him on since our last visit since the hydrocodone was ineffective in controlling his pain. The patient tells me that OxyContin marked OC has been very helpful in controlling his pain, but he received his second medicine that was OxyContin marked on the pill OP was not effective in controlling his pain. He does not get as good of relief. He tells me his pain score is 8-9 today, mostly located on his left side of his nose and he also has some whole entire body pain. He complains of a headache, and an achy, shocky feeling, buzzing feeling. He said cold, sleep makes it worse, but medication is very helpful at times with the OC OxyContin 20 mg. The patient tells me he is also seeing Dr. Barrera who is a neurologist at [facility]. He is trying him on some new medications and he will have a followup visit with him soon. ALLERGIES: No known drug allergies. MEDICATIONS: OxyContin 20 mg b.i.d., ibuprofen 200 mg alternating with Tylenol Extra Strength. PQRS: 1. He has no history of osteoarthritis or rheumatoid arthritis. 2. Height is 6 feet 1 inch, weight is 230, BMI is 30. 3. Pulse is 77, blood pressure 118/80, respirations 16, oxygen sat is 96. 4. Pain score is 8-9. 5. Fall risk. Denies dizziness, does not need help walking or standing. Has not fallen in the last 3 months. 6. The patient is not on any blood thinners and on no medicine for hypertension. 7. Opioid therapy is greater than 6 weeks; therefore, an opioid signed contract is on the chart. 8. Risk assessment tool is low. Functional assessment is 39/70. 9. Recreational drug use. He denies. He is a former smoker and does not drink alcohol. We did check the prescription monitoring system. The patient filled on 12/05/2018 of this month, [place] [address] PAIN MANAGEMENT CONSULTATION Name: CHICA PEACOCK Room #: REG [facility] Fuller#: [id number] Admission: 12/15/18 ������������������ Attend Phys: Judit Carrillo Discharge: ������������������ Date of : 48 Report #: [id number] not see a recent drug screen on the chart, so we will collect a urine specimen today. The patient tells me that he does safeguard his medications. PHYSICAL EXAMINATION: GENERAL: This is a well-developed, well-nourished depressed gentleman who appears his stated age of 68. His affect is flat. He is alert and orientated. HEENT: Mild exophthalmus. Complains of pain with light touch along the right lateral aspect of his nose and inner part of his eye. Mucous membranes are moist. Ears: Hearing is adequate. NECK: No JVD or adenopathy. ASSESSMENT: 1. Chronic atypical facial pain, trigeminal neuralgia. 2. Chronic depression. 3. Opioid medication under terms of written opioid agreement. We reviewed the fact that opiate medications are being used to provide analgesia adequate to support activities of daily living, not attempting to achieve a specific pain score on the 0-10 Visual Analog Scale. The current opiate medications are providing sufficient analgesia to allow the patient to participate in activities of daily living. The patient is not exhibiting any aberrant behavior suggestive of drug diversion. The patient is not having any adverse reactions to medications. The patient is not suffering from daytime somnolence or mental acuity changes. The patient is managing opiate-induced constipation with appropriate awhf-zcu-igexfmh agents and dietary considerations. The patient was counseled on concern for caution with operating a motor vehicle while using opiate medications. A physical exam was performed and the patient's functional status was evaluated. All patients with back pain were advised against the bed rest greater than 4 days and were advised to return to normal activities. Pain score assessment was noted and the treatment plan was reviewed with the patient. All current medications, both prescribed and OTC were reviewed and reconciled on the electronic medical record. Tobacco screening was accomplished and smoking cessation was advised when indicated. BMI was noted and diet/exercise modification was recommended for all patients following outside normal parameters. I reviewed with the patient today their responsibilities to safeguard prescription medications, reviewed their responsibility to utilize medications only as prescribed by the physician. They are to seek and receive pain medications only from 1 physician group ([facility]). They are to use 1 pharmacy and keep the clinic informed if they change pharmacies. Their responsibilities include making followup visits in a timely fashion and to avoid abrupt discontinuation of medication usage. Their responsibilities further include bringing their medications (bottles from the pharmacy with residual [facility] [address] [place] [address] PAIN MANAGEMENT CONSULTATION Name: CHICA PEACOCK [facility] [id number] Admission: 12/15/18 ������������������ Attend Phys: Judit CLAUDIO Gerardo Discharge: ������������������ Date of : 48 Report #: [id number] pills) to the visit for possible confirmation of pill counts and the patient understands it is their responsibility to submit to random drug screens to ensure both that the medications prescribed are present, and that no other controlled substances are present. All prescriptions provided today were generated electronically. PLAN: 1. A great deal of time was discussed with the patient talking about treatment options. The patient tells me that his best pain relief has come when he has taken OxyContin extended release OC tablets marked on them, but now they have changed the dental coordinator and more abuse deterrent and those are no longer being dispensed. The OP marked on them are not as effective. He is wondering about alternatives. I spent quite a bit of time talking about medications that he has been on and possible other treatments, then Dr. Luis Garcia entered the room. We have gone through the list of medications that the patient has taken in the past, which involved Neurontin, Trileptal, Klonopin, Nucynta, Cymbalta, Lyrica, Lortab, oxycodone, Savella, amitriptyline, tramadol, Advil, Flonase, Tegretol, oxcarbazepine, methadone, Remeron, Xtampza, Nucynta ER, hydrocodone and Hysingla. None of these has been effective in controlling his pain. The patient tells me the only thing that has been effective in controlling his pain is OxyContin, which now he is unable to get. We discussed weaning off this medicine. The patient asked to double his medicine, which we will not be doing with the [facility] guidelines of currently trying to decrease patient's medication. The patient tells me that he was going to give up. We discussed that we are not giving up on him. We will continue at least on this current medicine that does give him some relief and if it becomes ineffective, we will see if there is other options. The patient is agreeable then to continue on with OxyContin. 2. We encouraged the patient to continue to follow up with Dr. Barrera and see what is helpful from his point of view, what other treatment options that he has and to keep us abreast of anything that he is trying. 3. Scripts given today to the patient of OxyContin 20 mg #60 for release today in 4 weeks. The patient will be unable to fill these for 2 weeks, so this medicine should last him until the beginning of February. 4. The patient seen in collaboration today with Dr. Garcia who was present for part of the visit today. ��������������������������������������������� <ELECTRONICALLY SIGNED> ���������������������������������������� By: Judit Carrillo ��������������������������������������������� 12/19/18 0749 [id number] Judit Carrillo /chinedu
== END ==
LOC: PAIN 06:52
DX: G50.0 Trigeminal neuralgia (principal); G50.1 Atypical facial pain; G89.29 Other chronic pain; F32.9 Major depressive disorder, single episode, unspecified; Z79.891 Long term (current) use of opiate analgesic; Z79.899 Other long term (current) drug therapy

== ENCOUNTER → 2019-02-13 | Outpatient (CLI) | payer OTHER, MEDICARE ==
[~2019-02-13] VITALS: Ht 185.4 cm; Wt 106.0 kg
[~2019-02-13] MED LIST changes: +LIPITOR40 MG PO; +METRONIDAZOLE45 GM TOP
[2019-02-13 13:26] VITALS: BP 134/72
--- NOTE | 2019-02-13 13:45 | NUR ---
Pain Clinic Assessment: 1. History of Osteoarthritis: Not Applicable History of Rheumatoid Arthritis: Not Applicable 2. Height: 6 ft. 1 in. 185.4 cm. Weight: 233.6 lb. oz. 105.960 kg. Patient's BMI: 30.8 3. Vital Signs: BP: 134/72 Pulse: 60 Resp: 16 Temp: 02 Sat: 100 ECG Mon: 4. Pain Intensity: 8 5. Fall Risk: Dizziness: N Needs help standing or walking: N Fallen in the last 3 months: N Fall risk comments: 6. Patient on Blood Thinner: None 7. History of Hypertension: N 8. Opioid Therapy greater than 6 weeks: N Opiate Contract Signed: 04/26/17 9. Risk Assessment Tool Provided: 0-LOW RISK 10. Functional Assessment Tool: 11. Recreational Drug Use: Never Drug Type: Tobacco Use: Former Smoker Tobacco Type: Amount or Packs/day: How Many Years: Alcohol Use: No Frequency: Quant:
--- NOTE | 2019-02-14 13:44 | HPC ---
[facility] [place] [address] PAIN MANAGEMENT CONSULTATION Name: MADONNACHICA Room #: REG [facility] MCitlalli.#: [id number] Admission: 02/13/19 ������������������ Attend Phys: Judit Carrillo Discharge: ������������������ Date of : 48 Report #: [id number] THIS REPORT FOR: //name// CC: Judit BUTLER physician/PCP DATE OF SERVICE: 02/13/2019 CHIEF COMPLAINT: Atypical facial pain, trigeminal neuralgia. HISTORY OF PRESENT ILLNESS: This patient returns to the pain clinic today for refill of his medication. He tells me that since he saw us last in November, he was diagnosed with [place] spotted fever. He believes now after speaking with this physician that in August when he had had a trial of Hysingla, he complained of being very sick with that medication, that it was truly his [place] spotted fever symptoms that he was having and not reaction to the pain medicine at that time. The patient tells me he has been on several rounds of antibiotic since we last saw him. He will continue to test positive for his [place] spotted fever for quite a while and may even need further antibiotics. The patient tells me because of this diagnosis and his OxyContin use, not being as effective as it was in the past, he was wondering if he could go back and do a trial of Hysingla which is the medication that he had trialled in August. The patient believes that the OxyContin generic form that he is taking right now does not work as well as his previous OxyContin. He feels that the pills goes straight through him whole and his pain score is an 8/10 today, mostly in the left side of his face and is a chronic achy shock and headache feeling. Therefore he would like to give the other medicine a trial. Also his insurance is no longer paying for his OxyContin as much as they used to and he has a significant out of pocket even though we did a prior authorization. He did call his insurance company and they are willing to cover the Hysingla medication. ALLERGIES: No known drug allergies. CURRENT LIST OF MEDICATIONS: Lipitor 40 mg daily, gabapentin 300 mg 3 times a day, OxyContin 20 mg b.i.d., ibuprofen 200 mg p.r.n., and Tylenol Extra Strength 500 mg p.r.n. PQRS: 1. He has no history of osteoarthritis or rheumatoid arthritis. 2. Height is 6 feet 1 inch, weight is 233. BMI is 30.8. 3. Vital signs: Blood pressure 134/72, pulse is 60, respirations 16, oxygen sat is 100, pain score is 8/10. 4. Fall risk: Denies dizziness. Does not need help walking or standing, has [facility] [address] [place] [address] PAIN MANAGEMENT CONSULTATION Name: MADONNACHICA [id number] Admission: 02/13/19 ������������������ Attend Phys: Judit Carrillo Discharge: ������������������ Date of : 48 Report #: [id number] not fallen in the last 3 months. 5. The patient is not on any blood thinners. He does not take medicine for hypertension. 6. Opiate therapy is greater than 6 weeks; therefore, an opiate signed contract is on the chart. 7. His risk assessment tool is low. Functional assessment is 39/70. 8. Recreational drug use, he denies. He is a former smoker and does not drink alcohol. We did check the prescription monitoring system. The patient is due for his medications in about 2 weeks. He does have a recent drug screen on the chart that is appropriate for his medications. He tells me he does safeguard all of his medications. PHYSICAL EXAMINATION: GENERAL: This is a well-developed, well-nourished depressed gentleman who appears his stated age. His affect is flat. He is alert and orientated, though his attitude seems upbeat at times throughout our conversation today. HEENT: Mild exophthalmus. Complains of pain with light touch on the right lateral aspect of the bridge of his nose and the inner part of his eye on his left side. Mucous membranes are moist. Hearing is adequate. NECK: Without JVD or adenopathy. ASSESSMENT: 1. Chronic atypical facial pain, trigeminal neuralgia. 2. Chronic depression. 3. Recently diagnosed with [place] spotted fever. 4. Opioid medication under terms of written agreement. We reviewed the fact that opiate medications are being used to provide analgesia adequate to support activities of daily living, not attempting to achieve a specific pain score on the 0-10 Visual Analog Scale. The current opiate medications are providing sufficient analgesia to allow the patient to participate in activities of daily living. The patient is not exhibiting any aberrant behavior suggestive of drug diversion. The patient is not having any adverse reactions to medications. The patient is not suffering from daytime somnolence or mental acuity changes. The patient is managing opiate-induced constipation with appropriate ygfm-dmr-[id number] agents and dietary considerations. The patient was counseled on concern for caution with operating a motor vehicle while using opiate medications. A physical exam was performed and the patient's functional status was evaluated. All patients with back pain were advised against the bed rest greater than 4 days and were advised to return to normal activities. Pain score assessment was noted and the treatment plan was reviewed with the patient. All current medications, both prescribed and OTC were reviewed and reconciled on the [facility] [address] [place] [address] PAIN MANAGEMENT CONSULTATION Name: CHICA PEACOCK Room #: REG CL M..#: [id number] Admission: 02/13/19 ������������������ Attend Phys: Judit Carrillo Discharge: ������������������ Date of : 48 Report #: [id number] electronic medical record. Tobacco screening was accomplished and smoking cessation was advised when indicated. BMI was noted and diet/exercise modification was recommended for all patients following outside normal parameters. I reviewed with the patient today their responsibilities to safeguard prescription medications, reviewed their responsibility to utilize medications only as prescribed by the physician. They are to seek and receive pain medications only from 1 physician group ( [facility]). They are to use 1 pharmacy and keep the clinic informed if they change pharmacies. Their responsibilities include making followup visits in a timely fashion and to avoid abrupt discontinuation of medication usage. Their responsibilities further include bringing their medications (bottles from the pharmacy with residual pills) to the visit for possible confirmation of pill counts and the patient understands it is their responsibility to submit to random drug screens to ensure both that the medications prescribed are present, and that no other controlled substances are present. All prescriptions provided today were generated electronically. PLAN: 1. We discussed treatment options with the patient today. The patient believes that he did not have a good trial of his Hysingla medication due to a newly diagnosed [place] spotted fever, would like to try that medication again due to the OxyContin not being as effective as it has in the past with current brand that he is receiving. 2. I did discuss the case with Dr. Luis Garcia. He is agreeable to retry the Hysingla at 60 mg per day. This places him at the current morphine milligram equivalent of 60 per day, that remains the same morphine milliequivalent that he was on with the OxyContin 20 mg twice a day. Script was given for 2 months of this medication. 3. Care was given in collaboration with Dr. Luis Garica today. The patient will return in 2-month time period for refills of this medication. He will call if he has any side effects from this and we will return him back to OxyContin 20 mg twice a day. ��������������������������������������������� <ELECTRONICALLY SIGNED> ���������������������������������������� By: Judit Carrillo ��������������������������������������������� 02/14/19 1344 [id number] Judit Carrillo /nt
== END ==
LOC: PAIN 06:56
DX: G50.1 Atypical facial pain (principal); G50.0 Trigeminal neuralgia; G89.29 Other chronic pain; F32.9 Major depressive disorder, single episode, unspecified; Z79.891 Long term (current) use of opiate analgesic

== ENCOUNTER → 2019-03-30 | Outpatient (CLI) | payer OTHER, MEDICARE ==
[~2019-03-30] VITALS: Ht 185.4 cm; Wt 104.5 kg
[2019-03-30 10:11] VITALS: BP 113/72
--- NOTE | 2019-03-30 10:24 | NUR ---
Pain Clinic Assessment: 1. History of Osteoarthritis: Not Applicable History of Rheumatoid Arthritis: Not Applicable 2. Height: 6 ft. 1 in. 185.4 cm. Weight: 230.4 lb. oz. 104.509 kg. Patient's BMI: 30.4 3. Vital Signs: BP: 113/72 Pulse: 81 Resp: 14 Temp: 02 Sat: 97 ECG Mon: 4. Pain Intensity: 5-6 5. Fall Risk: Dizziness: N Needs help standing or walking: N Fallen in the last 3 months: N Fall risk comments: 6. Patient on Blood Thinner: None 7. History of Hypertension: N 8. Opioid Therapy greater than 6 weeks: N Opiate Contract Signed: 04/26/17 9. Risk Assessment Tool Provided: 0-LOW RISK 10. Functional Assessment Tool: 11. Recreational Drug Use: Never Drug Type: Tobacco Use: Former Smoker Tobacco Type: Amount or Packs/day: How Many Years: Alcohol Use: No Frequency: Quant:
--- NOTE | 2019-04-03 10:27 | HPC ---
[facility] [address] [place] [address] PAIN MANAGEMENT CONSULTATION Name: CHICA PEACOCK [id number] Ad[facility]: 03/30/19 ������������������ Attend Phys: Judit Carrillo Discharge: ������������������ Date of : 48 Report #: [id number] THIS REPORT FOR: //name// CC: Judit Carrillo [facility] physician/PCP CHIEF COMPLAINT: Atypical facial pain, trigeminal neuralgia. HISTORY OF PRESENT ILLNESS: This is a 68-year-old gentleman who returns to the pain clinic today to discuss medication options including increase in his Hysingla. The patient reports a pain score of 5-6 of his pain that is on the left side of his nose. He is also having some entire body pain. He feels that, that pain is related to his diagnosis of Jay spotted fever. The patient tells me his pain is an achy shock, feeling a buzzing that is exacerbated by sleep. He always awakes with pain. He finds that the medications are slightly helpful. He denies any problems with constipation or feeling overmedicated. The patient brings with him today several graphs and information that he has researched on the internet explaining why he should take Hysingla ER at a higher strength. He is currently at 60 mg a day. The data that he brought in reports 100 mg tablets, he thinks would be beneficial for him. He is not in need of medications today. He is coming early to discuss options. CURRENT ALLERGIES: No known drug allergies. CURRENT LIST OF MEDICATIONS: Hysingla 60 mg daily, Lipitor 40 mg daily, gabapentin 300 mg 3 times a day, Advil p.r.n., and Tylenol Extra Strength p.r.n. PQRS: 1. He has no history of osteoarthritis or rheumatoid arthritis. 2. Height is 6 feet, weight is 230, BMI is 30.4. 3. Vital signs: Blood pressure 113/72, pulse is 81, respirations 14, and oxygen sat is 97. 4. Pain score is 5-6. 5. Denies dizziness. Does not need help walking or standing, has not fallen in the last 3 months. 6. The patient is not on any blood thinners. He does not take medicines for hypertension. 7. Opioid therapy is greater than 6 weeks; therefore, an opioid signed contract is on the chart. His risk assessment tool is low. Functional assessment is 39/70. 8. Recreational drug use, he denies. He is a former smoker and does not drink alcohol. According to the prescription monitoring system, the patient filled his medications on 03/13/2019 in a timely fashion and is not in need of those [address] [address] PAIN MANAGEMENT CONSULTATION Name: CHICA PEACOCK Room #: REG CLVikram Fuller#: [id number] Admission: 03/30/19 ������������������ Attend Phys: Judit Carrillo Discharge: ������������������ Date of : 48 Report #: [id number] medications today. There is a recent drug screen on the chart that is appropriate for his medications as well. PHYSICAL EXAMINATION: GENERAL: This is a well-developed, well-nourished, slightly depressed gentleman who appears his stated age. Affect is more upbeat today at times. He is alert and orientated, placing his current pain score at 5-6/10. HEENT: Mild exophthalmus pain. Complains of pain of light touch on right lateral aspect of the bridge of his nose and inner part of his eye on the left side, also pain in the temporal area above his left eye. Mucous membranes are moist. Hearing is adequate. IMPRESSION: 1. Chronic atypical facial pain, trigeminal neuralgia. 2. Chronic depression. 3. Jay spotted fever diagnosis. 4. Opioid medications under terms of written opioid agreement. We reviewed the fact that opiate medications are being used to provide analgesia adequate to support activities of daily living, not attempting to achieve a specific pain score on the 0-10 Visual Analog Scale. The current opiate medications are providing sufficient analgesia to allow the patient to participate in activities of daily living. The patient is not exhibiting any aberrant behavior suggestive of drug diversion. The patient is not having any adverse reactions to medications. The patient is not suffering from daytime somnolence or mental acuity changes. The patient is managing opiate-induced constipation with appropriate qfrq-vwv-onbrtco agents and dietary considerations. The patient was counseled on concern for caution with operating a motor vehicle while using opiate medications. A physical exam was performed and the patient's functional status was evaluated. All patients with back pain were advised against the bed rest greater than 4 days and were advised to return to normal activities. Pain score assessment was noted and the treatment plan was reviewed with the patient. All current medications, both prescribed and OTC were reviewed and reconciled on the electronic medical record. Tobacco screening was accomplished and smoking cessation was advised when indicated. BMI was noted and diet/exercise modification was recommended for all patients following outside normal parameters. I reviewed with the patient today their responsibilities to safeguard prescription medications, reviewed their responsibility to utilize medications only as prescribed by the physician. They are to seek and receive pain medications only from 1 physician group ([facility]). They are to use 1 pharmacy and keep the clinic informed if they change pharmacies. Their responsibilities include making followup visits in a timely fashion and to avoid [address] [address] PAIN MANAGEMENT CONSULTATION Name: CHICA PEACOCK Room #: REG [facility]#: [id number] Admission: 03/30/19 ������������������ Attend Phys: Judit Samuelskeith Discharge: ������������������ Date of : 48 Report #: [id number] abrupt discontinuation of medication usage. Their responsibilities further include bringing their medications (bottles from the pharmacy with residual pills) to the visit for possible confirmation of pill counts and the patient understands it is their responsibility to submit to random drug screens to ensure both that the medications prescribed are present, and that no other controlled substances are present. All prescriptions provided today were generated electronically. PLAN: 1. Discussed with the patient in depth for a significant amount of time about his request to increase from Hysingla 60 mg daily to Hysingla 100 mg daily. I explained to him about the CDC guidelines of morphine mEq. Currently, he is on 60 morphine mEq per day. He is requesting to go to 100. I explained to him that that is a 40-mg increase that is not a common practice that we perform at the clinic. We strive for lowest most effective dose in controlling the patient's pain. We discussed short-acting medications versus long-acting. The patient reports pain most significantly upon awakening from his sleep. He tells me he has pain about 18 hours after his dose has been taken. It does not matter if he takes his Hysingla in the morning, he will have pain in the late evening before he goes to bed, or if he has tried the days taking Hysingla at bedtime, he will have pain when awakening in the morning. 2. I explained to the patient about the lowest most effective dose. I do not feel comfortable increasing him to such to go from 60 mg to 100 mg. Normally, we titrate people up slowly using the lowest most effective dose. The patient verbalizes understanding of this. It was decided to make an appointment with Dr. Luis Garcia to discuss changes in his medication. The patient finds that the Hysingla has been beneficial in controlling some of his pain, though he does not feel that it is quite adequate at this level. His insurance does cover Hysingla on their formulary and he finds this very beneficial since OxyContin that he was on in the past, is no longer covered. 4. Appointment made with Dr. Luis Garcia for Apr 06, this would be before he would be out of his medications. The patient is content with this. I have included the papers that he brought from the internet in the chart for review by Dr. Luis Garcia before this appointment. The patient was seen in collaboration today with Dr. Garcia. ��������������������������������������������� <ELECTRONICALLY SIGNED> ���������������������������������������� By: Judit Carrillo ��������������������������������������������� 04/03/19 1027 [id number] [id number] Judit Carrillo /nt
== END ==
LOC: PAIN 06:43
DX: G50.0 Trigeminal neuralgia (principal); F32.9 Major depressive disorder, single episode, unspecified; Z79.891 Long term (current) use of opiate analgesic; Z79.899 Other long term (current) drug therapy

== ENCOUNTER → 2019-04-06 | Outpatient (CLI) | payer OTHER, MEDICARE ==
[~2019-04-06] VITALS: Ht 185.4 cm; Wt 105.4 kg
[~2019-04-06] MED LIST changes: +NUCYNTA50 MG PO
[2019-04-06 13:15] VITALS: BP 135/80
--- NOTE | 2019-04-06 13:26 | NUR ---
Pain Clinic Assessment: 1. History of Osteoarthritis: Not Applicable History of Rheumatoid Arthritis: Not Applicable 2. Height: 6 ft. 1 in. 185.4 cm. Weight: 232.4 lb. oz. 105.416 kg. Patient's BMI: 30.7 3. Vital Signs: BP: 135/80 Pulse: 76 Resp: 18 Temp: 02 Sat: 98 ECG Mon: 4. Pain Intensity: 6-7 5. Fall Risk: Dizziness: N Needs help standing or walking: N Fallen in the last 3 months: N Fall risk comments: 6. Patient on Blood Thinner: None 7. History of Hypertension: N 8. Opioid Therapy greater than 6 weeks: N Opiate Contract Signed: 04/26/17 9. Risk Assessment Tool Provided: 0-LOW RISK 10. Functional Assessment Tool: 11. Recreational Drug Use: Never Drug Type: Tobacco Use: Former Smoker Tobacco Type: Amount or Packs/day: How Many Years: Alcohol Use: No Frequency: Quant:
--- NOTE | 2019-04-13 16:33 | HPC ---
[facility] [place] [address] PAIN MANAGEMENT CONSULTATION Name: CHICA PEACOCK Room #: REG CLVikram Andrews.#: [id number] Admission: 04/06/19 Attend Phys: Luis Garcia MD Discharge: Date of : 48 Report #: [id number] THIS REPORT FOR: //name// CC: [facility] physician/PCP Luis Garcia DATE OF SERVICE: 04/06/2019 Followup visit for atypical facial pain/discomfort, question trigeminal neuralgia. The patient returns to the Pain Clinic today in followup to discuss medication. He came with graphs and charts that he had taken from the internet to justify what he believes should be an increase in his Hysingla from 60 mg a day to 80 mg a day. I was reluctant to increase his medication at this time fearing that we would simply see additional tolerance. It was in part based upon my concern that we have had such a difficult time finding any medication that will stick. He has been on Nucynta, had trials of methadone, fluoxetine, OxyContin, gabapentin, clonazepam, hydrocodone, Remeron, Xtampza ER as well as more distant trials and failures of several anti-seizure medications including gabapentin and Nucynta. His symptoms remain consistent at a 6-7/10. He described this as the unusual ringing of white noise in the left orbit, also described as a shock or an aching sensation. He has suffered in the past from insomnia, but denies depression at this point. When we reviewed his day, on average, he says that he starts by sitting in a chair for 3 hours while he waits for his Hysingla to work. At that time in the first part of the morning, his pain is a 10/10. This usually occurs after a good night of sleep. He sleeps about 7 hours. Once the medication effect is taken, he describes working in the yard, working on his motorcycle or riding his motorcycle, fixing his car and doing some woodworking. He has been able to do some day-to-day activities with his current dose of medicine. He denies side effects. He carefully safeguards his medication. He generally feels he is under-medicated. In the past, he has felt unsatisfied with other medication regimes and it seems like we have been changing medicines frequently over the course of time that he has been my patient. Please refer to previous dictations. PQRS: 1. Negative for osteoarthritis. 2. BMI 30.7. 3. Vital Signs: Blood pressure 135/80, heart rate 76, [place]irations 18. [place] [address] PAIN MANAGEMENT CONSULTATION Name: CHICA PEACOCK Room #: REG [facility].#: [id number] Admission: 04/06/19 Attend Phys: Luis Garcia MD Discharge: Date of : 48 Report #: [id number] 4. Pain intensity 6-7/10. 5. He is not a fall risk. 6. No blood thinners 7. History of hypertension. 8. Opioid agreement signed in 03/2017. Risks of opioids have been reviewed and discussed at length. 9. He is at low risk for addiction by the opioid risk tool. 10. Functional assessment tool is 39/70. 11. He denies use of tobacco and alcohol. PHYSICAL EXAMINATION: VITAL SIGNS: As noted above. GENERAL: He is mildly depressed and a bit angry today as he makes his case with charts and graphs describing an appropriate baseline and what he believes are under-treatment of his severe pain. HEENT: Reveals pupils to be small, but reactive to light. He has bilateral conjunctival redness and irritation. Perhaps slight exophthalmos? Tenderness in the area above and below the orbit bilaterally. NECK: Supple. CHEST: Clear. CARDIAC: Rhythm regular. IMPRESSION: 1. Trigeminal neuralgia. 2. Management of high risk medication. I was reluctant to increase his Hysingla, but later agreed that I would transition him back to Nucynta 50 mg q.6 hours. This is the medication that had previously worked effectively for him and it was barred to us by insurance. He decided that he wants to continue on the Hysingla 60 and we will fill those prescriptions. I reviewed the prescription drug monitoring program information. There are no other prescribers of opioid medications. I am open to any other suggestions on treatment. Perhaps the [facility] would be helpful for him. Although he resists the idea that he may have some depression, it is well known that the patient is living with severe intractable pain, have low mood and depression is common. [facility] also provides nonpharmacologic pain management techniques that may be of benefit to him for the severe discomfort. [address] [address] PAIN MANAGEMENT CONSULTATION Name: CHICA PEACOCK Room #: REG Vikram Andrews.#: [id number] Admission: 04/06/19 Attend Phys: Luis Garcia MD Discharge: Date of : 48 Report #: [id number] Phone call was placed to the patient to discuss the [facility] with him. Followup visit planned in 2-3 months. <ELECTRONICALLY SIGNED> By: Luis Garcia MD 04/13/19 1633 [id number] Luis Garcia MD /nt
== END ==
LOC: PAIN 06:59
DX: G50.0 Trigeminal neuralgia (principal)

== ENCOUNTER → 2019-06-01 | Outpatient (CLI) | payer OTHER, MEDICARE ==
[~2019-06-01] VITALS: Ht 185.4 cm; Wt 107.4 kg
[~2019-06-01] MED LIST changes: +ROXICODONE15 M1 PO
[2019-06-01 11:01] VITALS: BP 152/85
--- NOTE | 2019-06-01 11:28 | NUR ---
Pain Clinic Assessment: 1. History of Osteoarthritis: Not Applicable History of Rheumatoid Arthritis: Not Applicable 2. Height: 6 ft. 1 in. 185.4 cm. Weight: 236.8 lb. oz. 107.412 kg. Patient's BMI: 31.2 3. Vital Signs: BP: 152/85 Pulse: 77 Resp: 14 Temp: 02 Sat: 99 ECG Mon: 4. Pain Intensity: 7 5. Fall Risk: Dizziness: N Needs help standing or walking: N Fallen in the last 3 months: N Fall risk comments: 6. Patient on Blood Thinner: None 7. History of Hypertension: N 8. Opioid Therapy greater than 6 weeks: N Opiate Contract Signed: 04/26/17 9. Risk Assessment Tool Provided: 0-LOW RISK 10. Functional Assessment Tool: 11. Recreational Drug Use: Never Drug Type: Tobacco Use: Former Smoker Tobacco Type: Amount or Packs/day: How Many Years: Alcohol Use: No Frequency: Quant:
--- NOTE | 2019-06-01 11:28 | NUR ---
Document wound assessment on appropriate Wound Pressure, Monitor intervention!
--- NOTE | 2019-06-08 16:52 | HPC ---
[facility] [address] [place] [address] PAIN MANAGEMENT CONSULTATION Name: CHICA PEACOCK Room #: REG Vikram Darryl.#: [id number] Admission: 06/01/19 Attend Phys: Luis Garcia MD Discharge: Date of : 48 Report #: [id number] THIS REPORT FOR: //name// CC: [facility] physician/PCP Luis Garcia DATE OF SERVICE: 06/01/2019 Followup visit for atypical facial pain/trigeminal neuralgia. Medication management and counseling. The patient was in the pain clinic today for 25 minutes. We discussed his ongoing pain. He has recently had a balloon sinus procedure performed in the office by Dr. Lucero. He said that since that procedure, his sinuses are somewhat better, but his pain is more severe. This is a common complaint from the patient, who we have yet to find a medication that will be effective in alleviating his pain at a cost that he can manage. He has limitations with the insurance for what medications he can take. The opioid class of medications has been helpful to a certain degree, although he constantly is unsatisfied with the medications available. All of medication classes that we have tried have either had intolerable side effects or been unmanageable. I have talked to him about trying buprenorphine either in the form of Suboxone or in a Butrans patch. That will be our next option after oxycodone, which I will renew for him today. I am going to give him 1 month of 15 mg oxycodone tablets 3 times daily. We discussed side effects. We talked about the importance of safeguarding medications. We had extensive discussions about the opioid crisis. We reviewed the CDC guidelines as we have done in many visits. Today, he scores his pain as a 7/10. It is chronic, aching, buzzing, headaches sensation. He also complains of diffuse pain in his spine, feet, and other places. Functional history was elicited today. He reports that he knows that it is important for him to remain active despite his pain. Diversion and distraction have been talked about at some length as the pain management tools as well as therapeutic. 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 He is doing projects on a car at home , a [employer] that he has had for many years and has also been doing yard work. He finds that when he is active, his pain is less. We discussed this is an important strategy for managing chronic pain. [facility] [address] [place] [address] PAIN MANAGEMENT CONSULTATION Name: CHICA PEACOCK Room #: REG CLI [facility]#: [id number] Admission: 06/01/19 Attend Phys: Luis Garcia MD Discharge: Date of : 48 Report #: [id number] We talked about [facility] and have offered classes there that may be helpful for him for emotional distress, chronic pain, and for meditation. PHYSICAL EXAMINATION: Blood pressure is 135/80, heart rate 76, respirations 18, O2 sat is 100%. BMI is 30.7. Pupils are equal, round, reactive to light. He has slight conjunctival redness, less than normal I would say today. Nares are clear. Mucous membranes are moist. Neck is supple. He has mild allodynia through the bridge of his nose and face. It is worse on the left. Affect is more calm, less depressed today. He did not cry in our office today. IMPRESSION: 1. Atypical facial pain, significant challenges with intractable neuralgic discomfort. Chronic sinus problems. 2. Management of high risk medications under written agreement. 3. Depression and anxiety improved slightly by assessment today. PLAN: I have given him 1 month of oxycodone 15 mg 3 times a day. We discussed the planned strategy to be taken on a schedule, first medication in the morning early on if he gets up to go to the bathroom at 4 or 5 in the morning and goes back to bed, he can take it then, it will be in function. It will be working when he first gets up, which is usual his worst time of day. The other two will be taken on a p.r.n. basis later throughout the day. He will watch closely for opioid related side effects. Followup visit planned in 2-3 months. 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 That has been our goal along, is to find a stable medication and it has been exceptionally challenging for the patient. <ELECTRONICALLY SIGNED> By: Luis Garcia MD 06/08/19 1652 [id number] Luis Garcia MD /nt
== END ==
LOC: PAIN 06:52
DX: G50.0 Trigeminal neuralgia (principal); F32.9 Major depressive disorder, single episode, unspecified; F41.9 Anxiety disorder, unspecified

== ENCOUNTER → 2019-08-28 | Outpatient (CLI) | payer OTHER, MEDICARE ==
[~2019-08-28] VITALS: Ht 185.4 cm; Wt 104.7 kg
--- NOTE | ~2019-08-28 | HPC ---
[facility] [address] [place] [address] PAIN MANAGEMENT CONSULTATION Name: CHICA PEACOCK Room #: REG CL M.R.#: [id number] Admission: 08/28/19 Attend Phys: Luis Garcia MD Discharge: Date of : 48 Report #: [id number] THIS REPORT FOR: //name// CC: RIVER BARRERA MD [facility] physician/PCP Luis Lucero MD DATE OF SERVICE: 08/28/2019 Followup visit for atypical facial pain/trigeminal neuralgia. The patient returns to pain clinic today in followup for medication management of his unusual facial pain and tinnitus. He has really been a difficult medication management for us. We have tried several antidepressants, by my count 5, as well as antidepressant medications and he is on gabapentin. He has had trial also of Lyrica and carbamazepine. He has seen neurologists and specialist at the [facility]. No one has been able to provide substantial relief for him and he comes to my clinic frequently requesting that we increase his narcotic medications. I noted from my record that when he first came to our clinic in 2012 that he was taking Nucynta 100 mg q.6 hours. At that time, despite the high dose of Nucynta, his pain scores were elevated, describing the pain as an 8/10 and his impacted pain score was dramatic. He scored interference by this facial pain in every aspect of his life. We use an impacted pain score, and with the high-dose opioids that he was on at that time, he scored 10/10 for general activity, mood work, relationships with others, sleep and enjoyment of life. Over the course of the last 7 years, we have tried repeatedly to decrease his pain. I have tried a sphenopalatine ganglion block using lidocaine and swabs. No additional injections have ever been performed in our clinic. In 2013, he was taken off of Nucynta because of cost. He was given a trial of methadone, which we have found effective for a number of our patients with trigeminal neuralgia. He did not stay on it long finding it unsatisfactory. We then went through another round of opioids after failure of additional trials of nonopioid medications. I noted in 2018 that by that time, he had tried several varieties of morphine including Embeda and long-acting time release morphine; methadone; Zohydro, the long-acting hydrocodone; oxycodone; Nucynta; fentanyl patch and he had had a trial of ketamine as well as elsewhere. He was using benzodiazepines including up to a dose of 2 mg of clonazepam with mixed success. He has been emotional, cried in our office about the intensity of the pain. He recently was seen by Dr. Barrera, the neurologist, who referred him to another pain clinic for evaluation. He went to the [facility] and had a consult with a female physician. He could not tell me her name. He was told that he could receive diagnostic injections on 2 occasions followed by a neurolytic procedure. He initially said yes, but then decided against the [address] [address] PAIN MANAGEMENT CONSULTATION Name: CHICA PEACOCK Room #: REG DEDRICK Fuller#: [id number] Admission: 08/28/19 Attend Phys: Luis Garcia MD Discharge: Date of : 48 Report #: [id number] procedure and has not rescheduled with them. As I reviewed the prescription drug monitoring information that we print for each patient, I noted that he had received 30 Nucynta 100-mg tablets from Dr. Jesus Lucero on 08/07/2019. He tells me that he fell from a ladder and injured himself, although there were no fractures or other outward signs of injury. He said that he hurt so badly that he called Dr. Lucero who prescribed the medication for him outside of our opioid agreement. He continues to see Dr. Lucero who is also prescribing gabapentin for him. I reminded him today that after 7 years in our clinic in multiple visits and discussions regarding his opioid agreement that he is aware that he should not be receiving opioids from 2 physicians simultaneously. This is one of the signs of an opioid use disorder. It is upsetting to him that we are not increasing his medication. He had asked me today to increase his oxycodone 15-mg tablets from 3-4 per day. He has never responded favorably to higher dose opioids and I refused to increase it with that history. That is a difficult challenging problem. He is very frustrated patient, given the fact that no one seems to have been able to provide him with adequate control of his symptoms. His symptoms remain challenging and difficult. He does not even describe it at times as pain, but more of a tinnitus, ringing in the ear, buzzing sensation that is bothersome and irritating to him. It does indeed appear to be neuropathic. It has some characteristics of trigeminal neuralgia. It is made worse with cold. Sleep seems to make it worse and any cool air blowing across his nares seems to make it worse. PHYSICAL EXAMINATION: GENERAL: He is angry again today, frustrated. VITAL SIGNS: He is 6 feet tall, 230 pounds, BMI of 30.5, blood pressure 135/77, heart rate 91, respirations 16, O2 sat 98. Pain intensity 8/10. HEENT: He has mild exophthalmos. Light touch allodynia noted across the right lateral aspect of the bridge of his nose and the inner part of his eye. Mucous membranes are moist. IMPRESSION: 1. Chronic atypical facial pain/trigeminal neuralgia. 2. Chronic depression. 3. Management of opioid medications under terms of an opioid agreement. Some red flag behaviors to suggest drug-seeking behaviors or perhaps pseudoaddiction due to at least perceived undertreated chronic pain. I have suggested maybe a return visit to the [facility]. He did not get benefit from that trip and does not want to seek other specialists. I have suggested possible referral to [facility]. I hope that Dr. Barrera might have some input into [facility] and its utility in treating his symptoms. [facility] [address] [place] [address] PAIN MANAGEMENT CONSULTATION Name: CHICA PEACOCK Room #: REG CL Darryl.#: [id number] Admission: 08/28/19 Attend Phys: Luis Garcia MD Discharge: Date of : 48 Report #: [id number] After he left, I considered also the option of lidocaine infusion or perhaps a ketamine infusion, both of which have been used for unusual neuropathic pains, including complex regional pain syndromes. We will discuss this further. I provided him with his baseline opioid prescription to prevent withdrawal. We will continue to seek out additional measures to treat his intractable pain. By: [id number] Luis Garcia MD /nt
[2019-08-28 14:22] VITALS: BP 135/77
--- NOTE | 2019-08-28 14:46 | NUR ---
Pain Clinic Assessment: 1. History of Osteoarthritis: DENIES History of Rheumatoid Arthritis: DENIES 2. Height: 6 ft. 1 in. 185.4 cm. Weight: 230.8 lb. oz. 104.690 kg. Patient's BMI: 30.5 3. Vital Signs: BP: 135/77 Pulse: 91 Resp: 16 Temp: 02 Sat: 98 ECG Mon: 4. Pain Intensity: 8 5. Fall Risk: Dizziness: N Needs help standing or walking: N Fallen in the last 3 months: Y Fall risk comments: 6. Patient on Blood Thinner: None 7. History of Hypertension: N 8. Opioid Therapy greater than 6 weeks: N Opiate Contract Signed: 04/26/17 9. Risk Assessment Tool Provided: 0-LOW RISK 10. Functional Assessment Tool: 11. Recreational Drug Use: Never Drug Type: Tobacco Use: Former Smoker Tobacco Type: Amount or Packs/day: How Many Years: Alcohol Use: No Frequency: Quant:
== END ==
LOC: PAIN 06:33
DX: G50.0 Trigeminal neuralgia (principal); F32.9 Major depressive disorder, single episode, unspecified; Z79.891 Long term (current) use of opiate analgesic

== ENCOUNTER → 2019-10-26 | Outpatient (CLI) | payer OTHER, MEDICARE ==
[~2019-10-26] VITALS: Ht 185.4 cm; Wt 106.1 kg
[2019-10-26 09:53] VITALS: BP 127/81
--- NOTE | 2019-10-26 10:18 | NUR ---
Pain Clinic Assessment: 1. History of Osteoarthritis: DENIES History of Rheumatoid Arthritis: DENIES 2. Height: 6 ft. 1 in. 185.4 cm. Weight: 234.0 lb. oz. 106.142 kg. Patient's BMI: 30.9 3. Vital Signs: BP: 127/81 Pulse: 81 Resp: 16 Temp: 02 Sat: 97 ECG Mon: 4. Pain Intensity: 7 5. Fall Risk: Dizziness: N Needs help standing or walking: N Fallen in the last 3 months: N Fall risk comments: 6. Patient on Blood Thinner: None 7. History of Hypertension: N 8. Opioid Therapy greater than 6 weeks: N Opiate Contract Signed: 04/26/17 9. Risk Assessment Tool Provided: 0-LOW RISK 10. Functional Assessment Tool: 11. Recreational Drug Use: Never Drug Type: Tobacco Use: Former Smoker Tobacco Type: Cigarettes Amount or Packs/day: < ppd How Many Years: 03 Alcohol Use: No Frequency: Quant:
--- NOTE | 2019-10-27 10:29 | HPC ---
[facility] [address] [place] [address] PAIN MANAGEMENT CONSULTATION Name: CHICA PEACOCK [facility] #: [id number] Admission: 10/26/19 Attend Phys: Judit Carrillo Discharge: Date of : 48 Report #: [id number] THIS REPORT FOR: cc: LUKE - No family physician/PCP FAM - No family physician/PCP Judit Carrillo ~ DATE OF SERVICE: 10/26/2019 CHIEF COMPLAINT: Atypical facial pain, trigeminal neuralgia. HISTORY OF PRESENT ILLNESS: This is a 69-year-old gentleman who returns to the pain clinic today for a refill of his medications. He reports that the oxycodone has been beneficial in helping reduce some of his pain. He feels that it does not last quite 8 hours in between his doses, but he is able to make do. This pain is located on his left side of his face and left eye as well as having tinnitus. The patient has been on numerous medication trials in the past, but feels like this medicine is effective as that he has tried in the past. Today, he would like refills. He rates his pain score as 7 on a bad day and 3/10 on a good day. The patient does tell me he is going to see Dr. Quesada at [facility]. 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 Lucero referred him there. He is unsure if he has any further or new treatments, but he tells me he has not given up. He continues to look for some kind of treatment that will help him with his pain. ALLERGIES: No known drug allergies. CURRENT LIST OF MEDICATIONS: Oxycodone 15 mg 3 times a day, gabapentin 900 mg 3 times a day, ibuprofen and Tylenol Extra Strength. PQRS: 1. The patient denies any osteo or rheumatoid arthritis. 2. Height is 6 feet 1 inch. 3. Weight is 234, BMI is 30. 4. Vital signs: Blood pressure 127/81, pulse is 81, respirations 16, oxygen sat is 97. 5. Pain score is 7/10. 6. Denies dizziness, does not need any help walking or standing, has not fallen in the last 3 months. 7. The patient is not on any blood thinners or medicine for hypertension. 8. Opioid therapy is greater than 6 weeks; therefore, an opioid signed contract is on the chart. Risk assessment tool is low. Functional assessment is . 9. Recreational drug use, he denies. He is a former smoker and does not drink alcohol. [address] [address] PAIN MANAGEMENT CONSULTATION Name: CHICA PEACOCK [id number] Admission: 10/26/19 Attend Phys: Judit Carrillo Discharge: Date of : 48 Report #: [id number] According to the prescription monitoring system, the patient is due to fill his medications today. According to the CDC guidelines, his morphine mEq per day is 67; therefore, he is seen every 2 months in our clinic and I reminded him of this today. There is a drug screen on the chart and we will repeat that at his next visit. PHYSICAL EXAMINATION: GENERAL: This is alert and orientated gentleman who appears his stated age. Fairly calm today, rating his pain score from 3/10 to 7/10. HEENT: He has mild exophthalmus. Light touch allodynia is noted on his left lateral aspect of his nose and the inner part and upper part of his left eye. IMPRESSION: 1. Chronic atypical facial pain, trigeminal neuralgia. 2. Chronic depression. 3. Management of opioid medications under terms of written opioid agreement. We reviewed the fact that opiate medications are being used to provide analgesia adequate to support activities of daily living, not attempting to achieve a specific pain score on the 0-10 Visual Analog Scale. The current opiate medications are providing sufficient analgesia to allow the patient to participate in activities of daily living. The patient is not exhibiting any aberrant behavior suggestive of drug diversion. The patient is not having any adverse reactions to medications. The patient is not suffering from daytime somnolence or mental acuity changes. The patient is managing opiate-induced constipation with appropriate svdw-uce-rxdhofz agents and dietary considerations. The patient was counseled on concern for caution with operating a motor vehicle while using opiate medications. A physical exam was performed and the patient's functional status was evaluated. All patients with back pain were advised against the bed rest greater than 4 days and were advised to return to normal activities. Pain score assessment was noted and the treatment plan was reviewed with the patient. All current medications, both prescribed and OTC were reviewed and reconciled on the electronic medical record. Tobacco screening was accomplished and smoking cessation was advised when indicated. BMI was noted and diet/exercise modification was recommended for all patients following outside normal parameters. I reviewed with the patient today their responsibilities to safeguard prescription medications, reviewed their responsibility to utilize medications only as prescribed by the physician. They are to seek and receive pain medications only from 1 physician group ([facility]). They are to use 1 pharmacy and keep the clinic informed if they change pharmacies. Their responsibilities include making followup visits in a timely fashion and to avoid abrupt discontinuation of medication usage. Their responsibilities further [facility] [address] [place] [address] PAIN MANAGEMENT CONSULTATION Name: CHICA PEACOCK Room #: REG CLVikram Fuller#: [id number] Admission: 10/26/19 Attend Phys: Judit Carrillo Discharge: Date of : 48 Report #: [id number] include bringing their medications (bottles from the pharmacy with residual pills) to the visit for possible confirmation of pill counts and the patient understands it is their responsibility to submit to random drug screens to ensure both that the medications prescribed are present, and that no other controlled substances are present. All prescriptions provided today were generated electronically. PLAN: 1. We discussed treatment options with the patient today. The patient has been stable now on his oxycodone 15 mg 3 times a day since May. This medication is working as well as we can hope he has been on numerous opioids that he feels have not been as beneficial. We will continue on his current dose. I will have Dr. Luis Garcia electronically send oxycodone 15 mg, #90 to his pharmacy for today and 4-week release. 2. Dr. Luis Garcia did see the patient and collaborated care with me today as well. The patient will return in 2 months. I encouraged him that new technology is on the rise all the time and to not give up hope that maybe something will be helpful in the future, but in the meantime, the medication is at least dulling his pain, some days better than others. The patient is agreeable with that and is thankful for the medications today. <ELECTRONICALLY SIGNED> By: Judit Carrillo 10/27/19 1029 [id number] Judit patiño
== END ==
LOC: PAIN 06:50
DX: G50.0 Trigeminal neuralgia (principal); F32.9 Major depressive disorder, single episode, unspecified; Z79.899 Other long term (current) drug therapy

== ENCOUNTER → 2019-12-21 | Outpatient (CLI) | payer OTHER, MEDICARE ==
--- NOTE | ~2019-12-21 | HPC ---
[facility] [address] [place] [address] PAIN MANAGEMENT CONSULTATION Name: MADONNACHICA Room #: REG Vikram MCitlalli.#: [id number] Admission: 12/21/19 Attend Phys: Judit Carrillo Discharge: Date of : 48 Report #: [id number] THIS REPORT FOR: cc: LUKE - Katina family physician/PCP LUKE - No family physician/PCP Judit Carrillo ~ CC: Judit Carrillo [facility] physician/PCP DATE OF SERVICE: 12/21/2019 This is a TeleMed appointment that the patient has consented for, starting at 9:21 to 9:36. CHIEF COMPLAINT: Atypical facial pain, trigeminal neuralgia. HISTORY OF PRESENT ILLNESS: This is a pleasant 69-year-old gentleman who I am speaking with via telephone today for a TeleMed appointment. He has no smart phone capabilities and his computer does not have a camera, so he is unable to do an audiovisual telehealth medicine appointment. Today, he is answering all my questions appropriately, reporting that his pain is a 7/10, though he just took his oxycodone that is beneficial in controlling much of his head pain that is located on the left side of his face under his left eye. He does report the gabapentin that he takes is beneficial as well, though he is requesting an increase in his opioid medications stating that he would like to have oxycodone every 6 hours instead of every 8 hours due to his reporting that the medication decreases its efficacy after 6 hours. He reports he does take Advil several times a day as that has been beneficial as well. He is no longer taking Tylenol as he had in the past due to a recent CAT scan that showed a fatty liver. The patient states that his pain is mostly on the left side of his face giving him a headache as well as a buzzing sensation that is worse with cold sleep and activity, though the medications are fairly beneficial. He denies any problems with constipation or daytime somnolence as a result of any of his medications. ALLERGIES: No known drug allergies. CURRENT LIST OF MEDICATIONS: Oxycodone 15 mg t.i.d., gabapentin 900 mg t.i.d., ibuprofen 600 mg t.i.d. PQRS: 1. He denies any osteo or rheumatoid arthritis. His height and weight were deferred as well as vital signs since this is a TeleMed appointment, that he does not have access to those. His pain score is 7/10. He denies any dizziness, does not need help walking per his report and has not fallen in the last 3 months. 2. The patient is not on any blood thinners or medicine for hypertension. His [address] [address] PAIN MANAGEMENT CONSULTATION Name: CHICA PEACOCK Room #: REG CL M.Bob.#: [id number] Admission: 12/21/19 Attend Phys: Judit Carrillo Discharge: Date of : 48 Report #: [id number] opioid therapy is greater than 6 weeks. His risk assessment tool is low. Functional assessment is 22/70. 3. Recreational drug use, he denies. He is a former smoker and does not drink alcohol. According to the prescription monitoring system, the patient last filled his opioid medication on 11/18/2019. He does take a benzodiazepine, which I questioned him. He reports he does not take that on the same time that he takes his oral medications for pain as well as gabapentin. We discussed not taking those at the same time. He has been on gabapentin and his oxycodone for quite significant amount of time. We discussed the risks of the benzodiazepine and opioid interactions. His morphine milliequivalent according to the CDC guidelines is 67. He is filling at one pharmacy only. REVIEW OF SYSTEMS: He is alert and orientated gentleman who is answering all my questions appropriately. Today, rating his port pain score is 7/10. He reports that his pain is on the left lateral aspect of his nose and the inner part of his left eye. It is sensitive to touch. Also, occasionally has a headache in the temporal area of his head as a result of pain. IMPRESSION: 1. Chronic atypical facial pain, trigeminal neuralgia. 2. Chronic depression. 3. Management of opioid medications under terms of written opioid agreement. We reviewed the fact that opiate medications are being used to provide analgesia adequate to support activities of daily living, not attempting to achieve a specific pain score on the 0-10 Visual Analog Scale. The current opiate medications are providing sufficient analgesia to allow the patient to participate in activities of daily living. The patient is not exhibiting any aberrant behavior suggestive of drug diversion. The patient is not having any adverse reactions to medications. The patient is not suffering from daytime somnolence or mental acuity changes. The patient is managing opiate-induced constipation with appropriate fqgf-fhe-dwmbhai agents and dietary considerations. The patient was counseled on concern for caution with operating a motor vehicle while using opiate medications. PLAN: 1. We discussed treatment options with the patient today. The patient is requesting an increase in his oxycodone 15 mg to 4 times a day. I explained to him that we try to keep the patients on the lowest most effective dose of opioids. Currently, he is at 67 morphine mEq according to the CDC guidelines. We would like to keep him there at his current rate if able. We discussed that currently he was taking his Neurontin and oxycodone at the same time, I encouraged him to alter the times that he takes his medicines and see if that is more beneficial. We also discussed that he takes ibuprofen 600 mg 3 times a [facility] [address] [place] [address] PAIN MANAGEMENT CONSULTATION Name: CHICA PEACOCK Room #: REG CLI ..#: [id number] Admission: 12/21/19 Attend Phys: Judit Carrillo Discharge: Date of : 48 Report #: [id number] day. There is a possibility we could prescribe a more stomach friendly anti-inflammatory, but currently during the COVID outbreak we are trying to keep people off anti-inflammatories. We will discuss this further at his next visit and possibly prescribe nabumetone if we are able. 2. I did discuss the opioid, benzodiazepine and gabapentin interactions. Per the prescription monitoring report, he recently received a prescription for clonazepam from Dr. Lucero. I encouraged not to take those at the same time of his opioids. 3. Scripts will be sent electronically by Dr. Luis Garcia for his oxycodone 15 mg, #90, for today and 4-week release. 4. Dr. Luis Garcia was present during my teleconference and collaborated care with me as well today. The patient will call when he fills his second prescription for an in-office appointment. By: 1038 Sarah Carrillo /chinedu
== END ==
LOC: PAIN 09:43 → TELEPC 09:48
DX: G50.1 Atypical facial pain (principal); F32.9 Major depressive disorder, single episode, unspecified; F11.20 Opioid dependence, uncomplicated; Z79.899 Other long term (current) drug therapy

== ENCOUNTER → 2020-02-12 | Outpatient (CLI) | payer OTHER, MEDICARE ==
[~2020-02-12] VITALS: Ht 185.4 cm; Wt 101.2 kg
[2020-02-12 10:23] VITALS: BP 127/87
--- NOTE | 2020-02-12 10:30 | NUR ---
Pain Clinic Assessment: 1. History of Osteoarthritis: DENIES History of Rheumatoid Arthritis: DENIES 2. Height: 6 ft. 1 in. 185.4 cm. Weight: 223.0 lb. oz. 101.152 kg. Patient's BMI: 29.4 3. Vital Signs: BP: 127/87 Pulse: 89 Resp: 18 Temp: 02 Sat: 98 ECG Mon: 4. Pain Intensity: 6-7 5. Fall Risk: Dizziness: N Needs help standing or walking: N Fallen in the last 3 months: N Fall risk comments: 6. Patient on Blood Thinner: None 7. History of Hypertension: N 8. Opioid Therapy greater than 6 weeks: Y Opiate Contract Signed: 04/26/17 9. Risk Assessment Tool Provided: 0-LOW RISK 10. Functional Assessment Tool: 11. Recreational Drug Use: Never Drug Type: Tobacco Use: Former Smoker Tobacco Type: Amount or Packs/day: How Many Years: Alcohol Use: No Frequency: Quant:
--- NOTE | 2020-02-13 07:48 | HPC ---
[facility] [address] [place] [address] PAIN MANAGEMENT CONSULTATION Name: CHICA PEACOCK Room #: [facility]..#: [id number] Admission: 02/12/20 Attend Phys: Judit Carrillo Discharge: Date of : 48 Report #: [id number] THIS REPORT FOR: cc: LUKE - Katina family physician/PCP FAM - No family physician/PCP Judti Carrillo ~ CC: Luis Garcia MD DATE OF SERVICE: 02/12/2020 CHIEF COMPLAINT: Atypical facial pain, trigeminal neuralgia. HISTORY OF PRESENT ILLNESS: This is a 69-year-old gentleman who is well known to the pain clinic. He is returning today for a refill of his opioid medications that he uses to help treat his ongoing left facial pain. He does report that Dr. Lucero had recently performed a sinus surgery in December to clear some cartilage. He states that this did help relieve some of his pain for a small amount of time, though he continues to have constant buzzing feeling and ringing sensation that does not stop. During that timeframe, Dr. Lucero did provide him with a short script of hydrocodone. The patient did not find that beneficial, he takes oxycodone 15 mg on a regular basis, so it was a significant decrease in strength than he takes normally. Patient does report that he takes clonazepam on a daily basis as much as 2 mg at bedtime to help him sleep. This has not been on his medication profile. The patient does report pain score of 6-7/10 today stating it is worse in his left side of his face with cold or increased activity. He feels that when he is congested his medications are very beneficial. ALLERGIES: No known drug allergies. CURRENT LIST OF MEDICATIONS: Oxycodone 15 mg t.i.d., gabapentin 900 mg t.i.d., ibuprofen and clonazepam 2 mg at bedtime. PQRS: 1. He denies any osteoarthritis or rheumatoid arthritis. 2. Height is 6 feet, weight is 223, BMI is 29. 3. Vital signs 127/87, pulse is 89, respirations 18, oxygen sat is 98%. 4. Pain score is 6-7. 5. Denies dizziness, does not need help walking or standing, has not fallen in the last 3 months. 6. The patient is not on any blood thinners or take medicine for hypertension. 7. Opioid therapy is greater than 6 weeks; therefore, an opioid signed contract is on the chart. Risk assessment tool is low. Functional assessment is 22/. 8. Recreational drug use, he denies. He is a former smoker and does not drink alcohol. [address] [address] PAIN MANAGEMENT CONSULTATION Name: CHICA PEACOCK [facility] [id number] Admission: 02/12/20 Attend Phys: Judit Carrillo Discharge: Date of : 48 Report #: [id number] According to the prescription monitoring system, the patient is due to fill his oxycodone later this week. He has filled several medicines from Dr. Jesus Lucero for his recent sinus surgery . According to the CDC guidelines, his morphine milliequivalent is 67. We will do a random drug screen on this patient today since it has been greater than one year. PHYSICAL EXAMINATION: GENERAL: This is an alert and orientated gentleman who appears his stated age. He is well-developed, well-nourished, rating his pain score at 6-7/10 today. HEENT: He has mild exophthalmus. Light touch allodynia is noted on the left lateral aspect of his nose and in the inner aspect of his eye. His conjunctivae are slightly reddened today in his eyes bilaterally. He is wearing a mask. IMPRESSION: 1. Chronic atypical facial pain, trigeminal neuralgia. 2. Chronic depression. 3. Management of opioid medications under terms of written opioid agreement. We reviewed the fact that opiate medications are being used to provide analgesia adequate to support activities of daily living, not attempting to achieve a specific pain score on the 0-10 Visual Analog Scale. The current opiate medications are providing sufficient analgesia to allow the patient to participate in activities of daily living. The patient is not exhibiting any aberrant behavior suggestive of drug diversion. The patient is not having any adverse reactions to medications. The patient is not suffering from daytime somnolence or mental acuity changes. The patient is managing opiate-induced constipation with appropriate ddow-rmu-dezbuan agents and dietary considerations. The patient was counseled on concern for caution with operating a motor vehicle while using opiate medications. PLAN: 1. We discussed treatment options with the patient today. We did discuss the risks of opioids and benzodiazepines. Currently, the patient states he takes 2 mg at bedtime. Encouraged him not to take his opioids at the same time. 2. It has been greater than one year since we had checked a random drug screen on this patient. We will obtain a specimen today to send off for testing. 3. We will continue his oxycodone 15 mg, #90. The patient is instructed to take no more than 3 tablets a day. He feels that they last less than 8 hours, but reminding him that the prescribed amount is no more than 3 a day. 4. The patient is seen in collaboration with Dr. Luis Garcia. <ELECTRONICALLY SIGNED> By: Judit Carrillo 02/13/20 0748 1133 1241 Judit patiño
== END ==
LOC: PAIN 06:47
PROVIDERS: ATTEND Clinical Nurse Specialist Adult Health
DX: G50.1 Atypical facial pain (principal); G50.0 Trigeminal neuralgia; F32.9 Major depressive disorder, single episode, unspecified; F11.20 Opioid dependence, uncomplicated; Z79.899 Other long term (current) drug therapy

== ENCOUNTER → 2020-04-01 | Outpatient (CLI) | payer OTHER, MEDICARE ==
[~2020-04-01] VITALS: Ht 185.4 cm; Wt 98.2 kg
[2020-04-01 10:13] VITALS: BP 102/68
--- NOTE | 2020-04-01 10:28 | NUR ---
Pain Clinic Assessment: 1. History of Osteoarthritis: DENIES History of Rheumatoid Arthritis: DENIES 2. Height: 6 ft. 1 in. 185.4 cm. Weight: 216.6 lb. oz. 98.249 kg. Patient's BMI: 28.6 3. Vital Signs: BP: 102/68 Pulse: 73 Resp: 14 Temp: 02 Sat: 100 ECG Mon: 4. Pain Intensity: 6-7 5. Fall Risk: Dizziness: N Needs help standing or walking: N Fallen in the last 3 months: N Fall risk comments: 6. Patient on Blood Thinner: None 7. History of Hypertension: N 8. Opioid Therapy greater than 6 weeks: Y Opiate Contract Signed: 04/26/17 9. Risk Assessment Tool Provided: 0-LOW RISK 10. Functional Assessment Tool: 11. Recreational Drug Use: Never Drug Type: Tobacco Use: Former Smoker Tobacco Type: Amount or Packs/day: How Many Years: Alcohol Use: No Frequency: Quant:
--- NOTE | 2020-04-02 10:03 | HPC ---
[facility] [address] [place] [address] PAIN MANAGEMENT CONSULTATION Name: CHICA PEACOCK Room #: [facility] [id number] Admission: 04/01/20 Attend Phys: Judit Carrillo Discharge: Date of : 48 Report #: [id number] THIS REPORT FOR: cc: LUKE Ambriz family physician/PCP FAM - No family physician/PCP Judit Carrillo ~ CC: Luis Garcia MD DATE OF SERVICE: 04/01/2020 CHIEF COMPLAINT: Atypical facial pain, trigeminal neuralgia. HISTORY OF PRESENT ILLNESS: This is a 69-year-old gentleman who returns to the pain clinic today to discuss his pain medication. He reports a pain score of 6-7 today, located on the left side of his face and his sinuses. He also has some back and leg pain and hand pain from neuropathy. He states at best his pain score is 2-3 when his medicines are working at their peak. Normally, his pain may go up to an 8-9 when the medication has worn off. He states that his oxycodone does not last 8 hours and he is requesting an increase in his pain medication today. He believes that if he has four tablets a day that his pain would be better controlled. He would able to sleep better at night and hopefully wean off his clonazepam. The patient states his surgeon performed sinus surgery in December, and told him that it could take at least a year before that is fully healed and he would notice a decrease in his pain. The patient denies any problems with constipation as a result of his medications. ALLERGIES: No known drug allergies. CURRENT LIST OF MEDICATIONS: Oxycodone 15 mg 3 times a day, clonazepam 1 mg at bedtime, gabapentin 900 mg 3 times a day and ibuprofen. PQRS: 1. Denies any osteo or rheumatoid arthritis. 2. Height is 6 feet 1 inch, weight is 216, BMI is 28. 3. Vital signs: Blood pressure 102/68, pulse is 73, respirations 14, oxygen sat is 100. 4. Pain score is 6-7. 5. Denies dizziness, does not need help walking or standing, has not fallen in the last 3 months. 6. The patient is not on any blood thinners or medicine for hypertension. 7. Opioid therapy is greater than 6 weeks; therefore, an opioid signed contract is on the chart. Risk assessment is low. Functional assessment is . 8. Recreational drug use, he denies. He is a former [place] [address] PAIN MANAGEMENT CONSULTATION Name: CHICA PEACOCK Room #: REG CLI [facility]#: [id number] Admission: 04/01/20 Attend Phys: Judit Carrillo Discharge: Date of : 48 Report #: [id number] alcohol. According to the prescription monitoring system, the patient filled his prescription on 03/10/2020. His current morphine milliequivalent is 67 morphine milliequivalent. There is a recent drug screen on the chart that is appropriate for his medications. PHYSICAL EXAMINATION: GENERAL: This is alert and orientated gentleman with a flat affect. He is well-developed, well-nourished, rating his pain at 6-7 today. HEENT: He has mild exophthalmus. He has allodynia noted on the left lateral aspect of his nose and under his eye. He is wearing a mask. His conjunctivae are slightly reddened bilaterally today. IMPRESSION: 1. Chronic atypical facial pain, trigeminal neuralgia. 2. Chronic depression. 3. Neuropathy. 4. Management of opioid medications under terms of written opioid agreement. We reviewed the fact that opiate medications are being used to provide analgesia adequate to support activities of daily living, not attempting to achieve a specific pain score on the 0-10 Visual Analog Scale. The current opiate medications are providing sufficient analgesia to allow the patient to participate in activities of daily living. The patient is not exhibiting any aberrant behavior suggestive of drug diversion. The patient is not having any adverse reactions to medications. The patient is not suffering from daytime somnolence or mental acuity changes. The patient is managing opiate-induced constipation with appropriate ylaj-ypl-joivvyi agents and dietary considerations. The patient was counseled on concern for caution with operating a motor vehicle while using opiate medications. A physical exam was performed and the patient's functional status was evaluated. All patients with back pain were advised against the bed rest greater than 4 days and were advised to return to normal activities. Pain score assessment was noted and the treatment plan was reviewed with the patient. All current medications, both prescribed and OTC were reviewed and reconciled on the electronic medical record. Tobacco screening was accomplished and smoking cessation was advised when indicated. BMI was noted and diet/exercise modification was recommended for all patients following outside normal parameters. I reviewed with the patient today their responsibilities to safeguard prescription medications, reviewed their responsibility to utilize medications only as prescribed by the physician. They are to seek and receive pain medications only from 1 physician group ([facility]). They are to use [facility] [address] [place] [address] PAIN MANAGEMENT CONSULTATION Name: CHICA PEACOCK Room #: REG CL[facility]#: [id number] Admission: 04/01/20 Attend Phys: Judit Carrillo Discharge: Date of : 48 Report #: [id number] pharmacy and keep the clinic informed if they change pharmacies. Their responsibilities include making followup visits in a timely fashion and to avoid abrupt discontinuation of medication usage. Their responsibilities further include bringing their medications (bottles from the pharmacy with residual pills) to the visit for possible confirmation of pill counts and the patient understands it is their responsibility to submit to random drug screens to ensure both that the medications prescribed are present, and that no other controlled substances are present. All prescriptions provided today were generated electronically. PLAN: 1. We discussed treatment options with the patient today. The patient is requesting an increase in his opioid medication. I did discuss this with Dr. Garcia. He is willing to increase to 4 tablets of oxycodone 15 mg a day, placing him at 90 morphine milliequivalent. This will be the max dose the patient will receive from our clinic. The patient was informed that we will not go any higher. He is now to be seen on a monthly basis due to his morphine milliequivalent number. Patient is agreeable with this. 2. We did discuss the next option of his medications are not beneficial in controlling his pain and he requests more medication is to refer him to Dr. Dwain Napoles to discuss cingulotomy which has been beneficial for his patients with uncontrolled pain issues. 3. The patient encouraged to continue to decrease his benzodiazepine, though to decrease them slowly. He has weaned himself from 2 mg at bedtime to 1. I encouraged him to decrease slowly as to not provoke benzodiazepine withdrawal. 4. The patient is seen in collaboration with Dr. Luis Garcia. The patient will return in 1 month for appointment. <ELECTRONICALLY SIGNED> By: Judit Carrillo 04/02/20 1003 1121 1828 Judit Carrillo /nt
== END ==
LOC: PAIN 06:47
PROVIDERS: ATTEND Clinical Nurse Specialist Adult Health
DX: D50.1 Sideropenic dysphagia (principal); G50.0 Trigeminal neuralgia; F32.9 Major depressive disorder, single episode, unspecified; F11.20 Opioid dependence, uncomplicated; Z79.899 Other long term (current) drug therapy

== ENCOUNTER → 2020-05-09 | Outpatient (CLI) | payer OTHER, MEDICARE ==
--- NOTE | 2020-05-10 07:17 | HPC ---
[facility] [address] [place] [address] PAIN MANAGEMENT CONSULTATION Name: CHICA PEACOCK Room #: REG [facility] M..#: [id number] Admission: 05/09/20 Attend Phys: Judit Carrillo Discharge: Date of : 48 Report #: [id number] THIS REPORT FOR: cc: LUKE Ambriz family physician/PCP FAM - Katina family physician/PCP Judit Carrillo ~ CC: Judit Garcia MD DATE OF SERVICE: 05/09/2020 This is a telemedicine appointment from 10:45-11:05 with this patient due to the coronavirus and his being immunosuppressed and he is caring for her. The patient has consented to this tele-med appointment. CHIEF COMPLAINT: Atypical facial pain, trigeminal neuralgia. HISTORY OF PRESENT ILLNESS: This is a 69-year-old gentleman who I am speaking with via the telephone for his telemedicine appointment today. He is reporting a significant decrease in pain since we increased his oxycodone use by 1 tablet at his last visit. He feels that it has significantly decreased his neuropathic pain and his overall body aches and pains. His pain score today is a 2-3 currently. He reports that it is usually worse in the morning by the afternoon and average pain is 1-2. He denies any increased constipation issues as a result of the increase in his opioid use. He continues on a daily laxative and stool softener. The patient's pain is located on the left side of his face and his sinuses. He does have some ongoing low back pain and leg pain as well. He reports that it is a buzzing sensation that is most bothersome and it is worse with sleeping. He also reports that recently he has started using headphones at night to help him go to sleep by listening to noise and then is able to sleep with the headphones in and he feels that this is also aiding in his sleep. He does report today he continues to decrease his clonazepam. He is down to 1 mg at bedtime and is hopeful to decrease this in the next month to 0.5 mg. ALLERGIES: No known drug allergies. CURRENT LIST OF MEDICATIONS: Oxycodone 15 mg q.i.d., clonazepam 1 mg at bedtime, gabapentin 900 mg t.i.d. and ibuprofen. PQRS: 1. He denies any osteo or rheumatoid arthritis. 2. Height, weight and vital signs were deferred today due to a telemedicine appointment. 3. Pain score is 2-3/10. 4. He denies dizziness. He does not need help walking or standing, has not fallen in the last [address] [address] PAIN MANAGEMENT CONSULTATION Name: CHICA PEACOCK [facility] #: [facility] [id number] Admission: 05/09/20 Attend Phys: Judit Carrillo Discharge: Date of : 48 Report #: [id number] 5. He is not on any blood thinners or medicine for hypertension. His opioid therapy is greater than 6 weeks; therefore, we have an opioid signed contract on the chart. 6. His risk assessment is low. Functional assessment is 22/70. 7. Recreational drug use, he denies. He is a former smoker and does not drink alcohol. According to the prescription monitoring system, he is due to fill his medications today. His morphine mEq according to the CDC guidelines is 90; therefore, he is seen on a monthly basis in our clinic. There is a drug screen on the chart that is appropriate for his medications. PHYSICAL EXAMINATION: This is a review of systems due to the Tele-med appointment. He is alert and orientated and answering all my questions appropriately. He states his pain is located under his left aspect of his nose under his eye today. Also, has tenderness in his lower back. IMPRESSION: 1. Chronic atypical facial pain, trigeminal neuralgia. 2. Chronic depression. 3. Neuropathy. 4. Constipation. 5. Management of opioid medications under terms of written agreement. PLAN: 1. We discussed treatment options with the patient today. The patient finds the increase in his opioid from 3 tablets to 4 tablets of oxycodone 15 mg have been very beneficial. His pain is significantly decreased. He would like to continue on this current dose and be seen on a monthly basis. Today, Dr. Luis Garcia will send electronically his oxycodone 15 mg, #120 to his local pharmacy electronically. 2. We did discuss decreasing his clonazepam again. He does have that medication provided by Dr. Lucero but he has been slowly weaning down. I encouraged again to wean down slowly, decreasing the dose a month at a time and reminding the patient he may never fully go off his clonazepam, but the lowest most effective dose that he is able to tolerate and help sleep and control his anxiety the best, patient verbalizes understanding. 3. The patient is seen in collaboration with Dr. Luis Garcia today. The patient will return to the office for his next visit in 1-month time. <ELECTRONICALLY SIGNED> By: Judit Carrillo 05/10/20 0717 1115 1250 Judit Carrillo /nt
== END ==
LOC: TELEPC 06:43 → PAIN 10:29
PROVIDERS: ATTEND Clinical Nurse Specialist Adult Health
DX: G50.1 Atypical facial pain (principal); G50.0 Trigeminal neuralgia; F32.9 Major depressive disorder, single episode, unspecified; K59.00 Constipation, unspecified; F11.20 Opioid dependence, uncomplicated; G62.9 Polyneuropathy, unspecified; Z79.899 Other long term (current) drug therapy

== ENCOUNTER → 2020-06-03 | Outpatient (CLI) | payer OTHER, MEDICARE ==
[~2020-06-03] VITALS: Ht 185.4 cm; Wt 96.3 kg
[2020-06-03 10:35] VITALS: BP 105/61
--- NOTE | 2020-06-03 10:46 | NUR ---
Pain Clinic Assessment: 1. History of Osteoarthritis: DENIES History of Rheumatoid Arthritis: DENIES 2. Height: 6 ft. 1 in. 185.4 cm. Weight: 212.4 lb. oz. 96.344 kg. Patient's BMI: 28.0 3. Vital Signs: BP: 105/61 Pulse: 79 Resp: 14 Temp: 02 Sat: 100 ECG Mon: 4. Pain Intensity: 2-BODY; 4-HEAD 5. Fall Risk: Dizziness: N Needs help standing or walking: N Fallen in the last 3 months: N Fall risk comments: 6. Patient on Blood Thinner: None 7. History of Hypertension: N 8. Opioid Therapy greater than 6 weeks: Y Opiate Contract Signed: 04/26/17 9. Risk Assessment Tool Provided: 0-LOW RISK 10. Functional Assessment Tool: 11. Recreational Drug Use: Never Drug Type: Tobacco Use: Former Smoker Tobacco Type: Amount or Packs/day: How Many Years: Alcohol Use: No Frequency: Quant:
--- NOTE | 2020-06-04 14:22 | HPC ---
[facility] [address] [place] [address] PAIN MANAGEMENT CONSULTATION Name: CHICA PEACOCK Room #: REG [facility]..#: [id number] Admission: 06/03/20 Attend Phys: Judit Carrillo Discharge: Date of : 48 Report #: [id number] CC: Judit Carrillo [facility] physician/PCP Luis Garcia MD DATE OF SERVICE: 06/03/2020 CHIEF COMPLAINT: Atypical facial pain, trigeminal neuralgia. HISTORY OF PRESENT ILLNESS: This is a 69-year-old gentleman who returns to the pain clinic today reporting that his pain is doing quite well since we had increased his opioid medications. Today, he is reporting a head, facial pain at 4/10, the rest of his body at a 2/10. He has been working in the yard, causing some general aches and pains. He does believe that his left side of his face from his neuralgia is feeling better by taking his oxycodone 4 tablets a day. He denies any daytime somnolence or constipation as a result of these medications. The patient is reporting that his ENT, has offered to switch his clonazepam to Valium. If we are agreeable with this switch, the patient would like to take Valium as needed throughout the day as well as at sleep. Currently, he is taking clonazepam only at bedtime. He believes this will be beneficial in helping some of the buzzing sensation he feels throughout the day in his left nasal area and sinus. ALLERGIES: No known drug allergies. CURRENT LIST OF MEDICATIONS: Oxycodone 15 mg q.i.d., clonazepam at bedtime, gabapentin 900 mg t.i.d. and ibuprofen. PQRS: 1. He denies any osteoarthritis or rheumatoid arthritis. 2. Height is 6 feet 1 inch, weight is 212, BMI is 28. 3. Vital signs; blood pressure 105/61, pulse is 79, respirations 14, oxygen sat is 100. 4. Pain score is 2-4/10. 5. Fall risk. Denies dizziness, does not need help walking or standing, has not fallen in the last 3 months. The patient is not on any blood thinners or medicine for hypertension. 6. His opioid therapy is greater than 6 weeks; therefore, an opioid signed contract is on the chart. Risk assessment is low. Functional assessment is . 7. Recreational drug use, he denies. He is a former smoker and does not drink alcohol. According to the prescription monitoring system, the patient is filling appropriately for his medications from our physician. He is due to fill them later this week. PHYSICAL EXAMINATION: GENERAL: This is alert and orientated 69-year-old gentleman who appears his stated age, placing his current pain score at 4/10 in his head. He is a good historian. HEENT: He has mild exophthalmus. Light touch allodynia is present on his left lateral aspect of his nose and inner aspect of his left eye. His conjunctivae are slightly reddened bilaterally. He is wearing a mask. MUSCULOSKELETAL: Does have some tenderness in his lumbosacral region and various joints are tender today. He has a normal gait. IMPRESSION: 1. Chronic atypical facial pain, trigeminal neuralgia. 2. Chronic depression. 3. Management of opioid medications under terms of written agreement. We reviewed the fact that opiate medications are being used to provide analgesia adequate to support activities of daily living, not attempting to achieve a specific pain score on the 0-10 Visual Analog Scale. The current opiate medications are providing sufficient analgesia to allow the patient to participate in activities of daily living. The patient is not exhibiting any aberrant behavior suggestive of drug diversion. The patient is not having any adverse reactions to medications. The patient is not suffering from daytime somnolence or mental acuity changes. The patient is managing opiate-induced constipation with appropriate rtep-gqx-rujwuvw agents and dietary considerations. The patient was counseled on concern for caution with operating a motor vehicle while using opiate medications. A physical exam was performed and the patient's functional status was evaluated. All patients with back pain were advised against the bed rest greater than 4 days and were advised to return to normal activities. Pain score assessment was noted and the treatment plan was reviewed with the patient. All current medications, both prescribed and OTC were reviewed and reconciled on the electronic medical record. Tobacco screening was accomplished and smoking cessation was advised when indicated. BMI was noted and diet/exercise modification was recommended for all patients following outside normal parameters. I reviewed with the patient today their responsibilities to safeguard prescription medications, reviewed their responsibility to utilize medications only as prescribed by the physician. They are to seek and receive pain medications only from 1 physician group ( [facility]). They are to use 1 pharmacy and keep the clinic informed if they change pharmacies. Their responsibilities include making followup visits in a timely fashion and to avoid abrupt discontinuation of medication usage. Their responsibilities further include bringing their medications (bottles from the pharmacy with residual pills) to the visit for possible confirmation of pill counts and the patient understands it is their responsibility to submit to random drug screens to ensure both that the medications prescribed are present, and that no other controlled substances are present. All prescriptions provided today were generated electronically. PLAN: 1. We discussed treatment options with the patient today. He is wanting to switch to diazepam from clonazepam. This is written by his ENT, Dr. Lucero. I explained to him the risk again of benzodiazepines and opioids. The patient has been taking clonazepam at bedtime. He believes the diazepam will be beneficial for daytime use to calm some of the buzzing sensation in his sinuses. I encouraged him lowest most effective dose only as needed, not as a scheduled medication throughout the day and then continue his tablet at night. He believes that Dr. Lucero is providing him with 10 mg of Valium. I encouraged him to start with 2.5 during the day, the lowest most effective dose and see if this is beneficial. The patient verbalizes understanding. He will scrap picker his diazepam today from the pharmacy. 2. We will continue him on his oxycodone 15 mg q.i.d., reminding the patient not to take his benzodiazepines and opioids at the same time and again discussing side effects and complications of these 2 medicines. 3. The patient will return in 1 month. The patient is seen today in collaboration with Dr. Luis Garcia who did send his prescriptions to be filled on 06/06/2020 for #120 oxycodone 15 mg tablets. <ELECTRONICALLY SIGNED> By: Judit Carrillo 06/04/20 1422 [id number] 1732 Judit Carrillo /nt
== END ==
LOC: PAIN 07:01
PROVIDERS: ATTEND Clinical Nurse Specialist Adult Health
DX: G50.1 Atypical facial pain (principal); G50.0 Trigeminal neuralgia; F32.9 Major depressive disorder, single episode, unspecified; F11.20 Opioid dependence, uncomplicated

== ENCOUNTER → 2020-07-01 | Outpatient (CLI) | payer OTHER, MEDICARE ==
[~2020-07-01] VITALS: Ht 185.4 cm; Wt 96.3 kg
[~2020-07-01] MED LIST changes: +DIAZEPAM 10 MG10 M1 PO
[2020-07-01 10:44] VITALS: BP 157/71
--- NOTE | 2020-07-01 10:58 | NUR ---
Pain Clinic Assessment: 1. History of Osteoarthritis: DENIES History of Rheumatoid Arthritis: DENIES 2. Height: 6 ft. 1 in. 185.4 cm. Weight: 212.4 lb. oz. 96.344 kg. Patient's BMI: 28.0 3. Vital Signs: BP: 157/71 Pulse: 72 Resp: 16 Temp: 02 Sat: 100 ECG Mon: 4. Pain Intensity: 4 5. Fall Risk: Dizziness: N Needs help standing or walking: N Fallen in the last 3 months: N Fall risk comments: 6. Patient on Blood Thinner: None 7. History of Hypertension: N 8. Opioid Therapy greater than 6 weeks: Y Opiate Contract Signed: 04/26/17 9. Risk Assessment Tool Provided: 0-LOW RISK 10. Functional Assessment Tool: 11. Recreational Drug Use: Never Drug Type: Tobacco Use: Former Smoker Tobacco Type: Amount or Packs/day: How Many Years: Alcohol Use: No Frequency: Quant:
--- NOTE | 2020-07-01 11:02 | NUR ---
Pain Clinic Assessment: 1. History of Osteoarthritis: DENIES History of Rheumatoid Arthritis: DENIES 2. Height: 6 ft. 1 in. 185.4 cm. Weight: 212.4 lb. oz. 96.344 kg. Patient's BMI: 28.0 3. Vital Signs: BP: 157/71 Pulse: 72 Resp: 16 Temp: 02 Sat: 100 ECG Mon: 4. Pain Intensity: 4 5. Fall Risk: Dizziness: N Needs help standing or walking: N Fallen in the last 3 months: N Fall risk comments: 6. Patient on Blood Thinner: None 7. History of Hypertension: N 8. Opioid Therapy greater than 6 weeks: Y Opiate Contract Signed: 07/02/20 9. Risk Assessment Tool Provided: 0-LOW RISK 10. Functional Assessment Tool: 11. Recreational Drug Use: Never Drug Type: Tobacco Use: Former Smoker Tobacco Type: Amount or Packs/day: How Many Years: Alcohol Use: No Frequency: Quant:
--- NOTE | 2020-07-01 11:02 | NUR ---
Document as much information as known. If only year is known, type in year only. DO NOT type in UNKNOWN or NEVER!
--- NOTE | 2020-07-02 08:51 | HPC ---
[facility] [address] [place] [address] PAIN MANAGEMENT CONSULTATION Name: CHICA PEACOCK Room #: REG [facility].#: [id number] Admission: 07/01/20 Attend Phys: Judit Carrillo Discharge: Date of : 48 Report #: [id number] CC: Judit Lucero MD DATE OF SERVICE: 07/01/2020 CHIEF COMPLAINT: Atypical facial pain, trigeminal neuralgia. HISTORY OF PRESENT ILLNESS: This is a 69-year-old gentleman who returns to the pain clinic today for refills of his opioid medication. He is well known to the pain clinic and has been coming here for several years for his ongoing trigeminal neuralgia. The patient also reports ongoing low back pain that does radiate into his legs and feet. Today, his pain is a 4/10. He describes his facial pain as a buzzing sensation that is relieved with his opioid medication. He does report taking gabapentin that is beneficial in his low back and leg pain. The patient reports today that Dr. Lucero has rotated him from clonazepam to his Valium. He reports utilizing a half to one tablet at bedtime and finds this is beneficial in relieving some of the "buzzing sensation" that he experiences. He does report, however, if he takes a full 10 mg dose at times, he feels lethargic in the morning, so most often is utilizing 5 mg tablets of Valium once a day. The patient denies any ongoing constipation issues as a result of his medications. ALLERGIES: No known drug allergies. CURRENT LIST OF MEDICATIONS: Oxycodone 15 mg q.i.d., gabapentin 900 mg t.i.d., ibuprofen and diazepam 5-10 mg at bedtime. PQRS: 1. He denies any osteo or rheumatoid arthritis. 2. Height is 6 feet 1 inch, weight is 212, BMI is 28. 3. Vital signs; blood pressure 157/71, pulse is 72, respirations 16, oxygen sat is 100. 4. Pain score is 4/10. 5. Denies dizziness, does not need help walking or standing, has not fallen in the last 3 months. 6. The patient is not on any blood thinners or medicine for hypertension. 7. Opioid therapy is greater than 6 weeks; therefore, an opioid signed contract is on the chart. Risk assessment is low. Functional assessment is . 8. Recreational drug use, he denies. He is not a smoker and does not drink alcohol. According to the prescription monitoring system, the patient is filling his opioid medications appropriately. His diazepam is filled for 90 pills every month. The patient reports taking a half to one tablet a day. I explained that he may want to discuss this with Dr. Lucero and decreased the amount of medications since 90 tablets would be a 3-month supply in his situation. We encouraged the patient to have the lowest amount of prescription medications at home. He reports he has not picked up the 06/24/2020 script for Valium and will have the pharmacy reshelve that medication. According to the CDC guidelines, his morphine milliequivalent is 90 MMEs per day. PHYSICAL EXAMINATION: GENERAL: This is alert and orientated 69-year-old gentleman who appears his stated age, placing his current pain score at 4/10. HEENT: Normocephalic. He has mild exophthalmus. Light touch allodynia is present in his left lateral aspect of his nose. His conjunctiva is red. He is wearing a mask. MUSCULOSKELETAL: He has tenderness in the lumbosacral region of his low back that radiates down his left leg. He has a normal gait. Lower extremity strength is symmetrical at 5/5. IMPRESSION: 1. Chronic atypical facial pain with trigeminal neuralgia. 2. Chronic depression. 3. Management of opioid medications under terms of written agreement. We reviewed the fact that opiate medications are being used to provide analgesia adequate to support activities of daily living, not attempting to achieve a specific pain score on the 0-10 Visual Analog Scale. The current opiate medications are providing sufficient analgesia to allow the patient to participate in activities of daily living. The patient is not exhibiting any aberrant behavior suggestive of drug diversion. The patient is not having any adverse reactions to medications. The patient is not suffering from daytime somnolence or mental acuity changes. The patient is managing opiate-induced constipation with appropriate vwyz-gom-llefybs agents and dietary considerations. The patient was counseled on concern for caution with operating a motor vehicle while using opiate medications. A physical exam was performed and the patient's functional status was evaluated. All patients with back pain were advised against the bed rest greater than 4 days and were advised to return to normal activities. Pain score assessment was noted and the treatment plan was reviewed with the patient. All current medications, both prescribed and OTC were reviewed and reconciled on the electronic medical record. Tobacco screening was accomplished and smoking cessation was advised when indicated. BMI was noted and diet/exercise modification was recommended for all patients following outside normal parameters. I reviewed with the patient today their responsibilities to safeguard prescription medications, reviewed their responsibility to utilize medications only as prescribed by the physician. They are to seek and receive pain medications only from 1 physician group ( [facility]). They are to use 1 pharmacy and keep the clinic informed if they change pharmacies. Their responsibilities include making followup visits in a timely fashion and to avoid abrupt discontinuation of medication usage. Their responsibilities further include bringing their medications (bottles from the pharmacy with residual pills) to the visit for possible confirmation of pill counts and the patient understands it is their responsibility to submit to random drug screens to ensure both that the medications prescribed are present, and that no other controlled substances are present. All prescriptions provided today were generated electronically. PLAN: 1. We discussed treatment options with the patient today. We will have him renew his opioid agreement. It has been greater than 3 years since his last update. There is a urine drug screen on the chart that is appropriate for his medications. The patient is now utilizing Valium in place of clonazepam. I encouraged him lowest most effective dose again noting that Valium is benzodiazepine just as clonazepam. He does take opioids too, so we want him to be very cautious in taking both of these medications together. Per his report he takes a half to one tablet a day, though Dr. Lucero is prescribing 90. I explained to him that he may want to discuss with the doctor to decrease the amount that he gets per month or explain to the pharmacy that he is taking one tablet a day and 90 is a 3-month supply. 2. We will have Dr. Luis Garcia send his oxycodone 15 mg, #120 for today. The patient is seen on a monthly basis because his morphine milliequivalent is at 90 MME. Appointment will be made prior to discharge today for his next appointment. 3. The patient is seen in collaboration today with Dr. Garcia. <ELECTRONICALLY SIGNED> By: Judit Carrillo 07/02/20 0851 [id number] 1832 Judit Carrillo /nt
== END ==
LOC: PAIN 07:03
PROVIDERS: ATTEND Clinical Nurse Specialist Adult Health
DX: Z76.0 Encounter for issue of repeat prescription (principal); G50.0 Trigeminal neuralgia; Z79.891 Long term (current) use of opiate analgesic

== ENCOUNTER → 2020-07-30 | Outpatient (CLI) | payer OTHER, MEDICARE ==
[~2020-07-30] VITALS: Ht 185.4 cm; Wt 98.2 kg
[2020-07-30 10:33] VITALS: BP 106/65
--- NOTE | 2020-07-30 10:51 | NUR ---
Pain Clinic Assessment: 1. History of Osteoarthritis: DENIES History of Rheumatoid Arthritis: DENIES 2. Height: 6 ft. 1 in. 185.4 cm. Weight: 216.4 lb. oz. 98.159 kg. Patient's BMI: 28.6 3. Vital Signs: BP: 106/65 Pulse: 78 Resp: 14 Temp: 02 Sat: 100 ECG Mon: 4. Pain Intensity: 5 5. Fall Risk: Dizziness: N Needs help standing or walking: N Fallen in the last 3 months: N Fall risk comments: 6. Patient on Blood Thinner: None 7. History of Hypertension: N 8. Opioid Therapy greater than 6 weeks: Y Opiate Contract Signed: 07/02/20 9. Risk Assessment Tool Provided: 0-LOW RISK 10. Functional Assessment Tool: 11. Recreational Drug Use: Never Drug Type: Tobacco Use: Former Smoker Tobacco Type: Amount or Packs/day: How Many Years: Alcohol Use: No Frequency: Quant:
--- NOTE | 2020-07-31 12:52 | HPC ---
[facility] [address] [place] [address] PAIN MANAGEMENT CONSULTATION Name: CHICA PEACOCK Room #: REG [facility] M.R.#: [id number] Admission: 07/30/20 Attend Phys: Judit Carrillo Discharge: Date of : 48 Report #: [id number] THIS REPORT FOR: cc: LUKE - Katina family physician/PCP FAM - No family physician/PCP Judit Carrillo ~ CC: Judit Garcia MD DATE OF SERVICE: 07/30/2020 CHIEF COMPLAINT: Atypical facial pain, trigeminal neuralgia, ongoing low back pain. HISTORY OF PRESENT ILLNESS: As you are aware, this is a 69-year-old gentleman who returns to the pain clinic today for refill of his medications. He has been taking oxycodone 15 mg for quite some time to help alleviate his trigeminal neuralgia that affects right side of his face. He does complain of a buzzing numbness sensation that is worse with cold weather and sleep. He also has ongoing low back pain that does radiate down his legs. Overall, he feels the medication regimen that he is on with oxycodone, gabapentin, and diazepam has been beneficial in helping reduce his pain, rating at a 5/10 today. ALLERGIES: No known drug allergies. CURRENT LIST OF MEDICATIONS: Oxycodone 15 mg 4 times a day, diazepam 5-10 mg at bedtime p.r.n., gabapentin 900 mg t.i.d. and ibuprofen p.r.n. PQRS: 1. He denies a history of osteo or rheumatoid arthritis. 2. Height is 6 feet 1 inch, weight is 216, BMI is 28. 3. Vital signs; blood pressure 106/65, pulse is 78, respirations 14, oxygen sat is 100. 4. Pain score is 5/10. 5. Denies dizziness, does not need help walking or standing, has not fallen in the last 3 months. 6. The patient is not on any blood thinners or medicine for hypertension. 7. Opioid therapy is greater than 6 weeks; therefore, an opioid signed contract is on the chart. Risk assessment is low. Functional assessment is . 8. Recreational drug use, he denies. He is not a smoker and does not drink alcohol. According to the prescription monitoring system, he is filling appropriately, filling in a timely fashion. His morphine milliequivalent is 96 and he is followed here on a monthly basis and we have checked [place] [address] PAIN MANAGEMENT CONSULTATION Name: CHICA PEACOCK Room #: REG CL Jonny#: [id number] Admission: 07/30/20 Attend Phys: Judit Carrillo Discharge: Date of : 48 Report #: [id number] past recently, which was appropriate. PHYSICAL EXAMINATION: GENERAL: This is alert and orientated 69-year-old gentleman who appears his stated age, placing his current pain score of 5/10. HEENT: Normocephalic, mild exophthalmus. Light touch allodynia is present in his left lateral aspect of his nose. He is wearing a mask and conjunctiva is chele. MUSCULOSKELETAL: Tenderness in his lumbosacral region that does radiate down his legs bilaterally, greater on the left than the right. Lower extremity strength is symmetrical at 5/5. IMPRESSION: 1. Chronic intractable facial pain with trigeminal neuralgia. 2. Chronic depression. 3. Low back pain. 4. Constipation. 5. Medication management utilizing opioid medications. We reviewed the fact that opiate medications are being used to provide analgesia adequate to support activities of daily living, not attempting to achieve a specific pain score on the 0-10 Visual Analog Scale. The current opiate medications are providing sufficient analgesia to allow the patient to participate in activities of daily living. The patient is not exhibiting any aberrant behavior suggestive of drug diversion. The patient is not having any adverse reactions to medications. The patient is not suffering from daytime somnolence or mental acuity changes. The patient is managing opiate-induced constipation with appropriate ebho-hja-bazrqyd agents and dietary considerations. The patient was counseled on concern for caution with operating a motor vehicle while using opiate medications. PLAN: 1. We discussed treatment options with the patient today. The patient does find his oxycodone beneficial in controlling his pain. Several nights he does wake from his sleep with increasing pain. We again discussed changing his medication times of administration to enable him to take 1 at bedtime. He had not tried this, but will. He does continue to utilize his Valium 5-10 mg at bedtime, which he does feel is beneficial. Dr. Lucero prescribed this medicine for him. 2. We will have Dr. Izaiah Taylor who is covering and collaborating care today for Dr. Garcia send his oxycodone 15 mg, #120 for 1-month supply. 3. We did talk about his ongoing constipation issues. The patient reports utilizing 3 stool softeners at night, but having significant constipation. We discussed trying MiraLax on an every other day basis and then possibly increasing to daily use or every third day and to decrease his stool softener use with no laxatives. He may also utilize slow movement tea if he would like. [address] [address] PAIN MANAGEMENT CONSULTATION Name: CHICA PEACOCK Room #: REG [facility] Jonny#: [id number] Admission: 07/30/20 Attend Phys: Judit Carrillo Discharge: Date of : 48 Report #: [id number] The patient will try these in the next month. 4. The patient again seen today in collaboration with Dr. Izaiah Taylor. He will follow up at the end of this month. <ELECTRONICALLY SIGNED> By: Judit Carrillo 07/31/20 1252 1321 2227 Judit Carrillo /nt
== END ==
LOC: PAIN 06:47
PROVIDERS: ATTEND Clinical Nurse Specialist Adult Health
DX: G50.0 Trigeminal neuralgia (principal); M79.10 Myalgia, unspecified site; F32.9 Major depressive disorder, single episode, unspecified; K59.00 Constipation, unspecified; F11.20 Opioid dependence, uncomplicated; Z79.899 Other long term (current) drug therapy

== ENCOUNTER → 2020-08-26 | Outpatient (CLI) | payer OTHER, MEDICARE ==
[~2020-08-26] VITALS: Ht 185.4 cm; Wt 97.3 kg
[~2020-08-26] MED LIST changes: +AMITRIPTYLINE H10 M1 PO
[2020-08-26 09:35] VITALS: BP 110/67
--- NOTE | 2020-08-26 09:41 | NUR ---
Pain Clinic Assessment: 1. History of Osteoarthritis: DENIES History of Rheumatoid Arthritis: DENIES 2. Height: 6 ft. 1 in. 185.4 cm. Weight: 214.4 lb. oz. 97.251 kg. Patient's BMI: 28.3 3. Vital Signs: BP: 110/67 Pulse: 77 Resp: 16 Temp: 02 Sat: 97 ECG Mon: 4. Pain Intensity: 5 5. Fall Risk: Dizziness: N Needs help standing or walking: N Fallen in the last 3 months: N Fall risk comments: 6. Patient on Blood Thinner: None 7. History of Hypertension: N 8. Opioid Therapy greater than 6 weeks: Y Opiate Contract Signed: 07/02/20 9. Risk Assessment Tool Provided: 0-LOW RISK 10. Functional Assessment Tool: 11. Recreational Drug Use: Never Drug Type: Tobacco Use: Former Smoker Tobacco Type: Amount or Packs/day: How Many Years: Alcohol Use: No Frequency: Quant:
--- NOTE | 2020-08-27 13:45 | HPC ---
[facility] [address] [place] [address] PAIN MANAGEMENT CONSULTATION Name: CHICA PEACOCK [id number] Admission: 08/26/20 Attend Phys: Judit Carrillo Discharge: Date of : 48 Report #: [id number] THIS REPORT FOR: cc: FAM - No family physician/PCP FAM - No family physician/PCP Judit Carrillo ~ DATE OF SERVICE: 08/26/2020 CC: Dr Luis Garcia MD CHIEF COMPLAINT: Atypical facial pain, trigeminal neuralgia, and low back pain. HISTORY OF PRESENT ILLNESS: This is a 69-year-old gentleman who returns to the pain clinic today for a refill of his medications that he uses to help treat his trigeminal neuralgia. His pain is along the right side of his face that incorporates his nose and forehead, complaining of a buzzing sensation with numbness that is worse in the morning as well as cold and has difficulty sleeping. Per his report, the medications are beneficial, though he is wondering today if we are able to increase his opioid medication or have other alternatives. The patient states that his ear, nose and throat surgeon has recommended a stimulator to help alleviate some of his discomfort. He is unsure if he wants to take that drastic measure of having an implant and his director global development did not recommend this device. He reports he has not seen his neurologist to see what they believe, if this would be beneficial or not. He would like to discuss other options if possible today. ALLERGIES: No known drug allergies. CURRENT LIST OF MEDICATIONS: Oxycodone 15 mg q.i.d., diazepam p.r.n., gabapentin 900 mg t.i.d., and ibuprofen. THE PATIENT'S PQRS: 1. He denies osteo or rheumatoid arthritis. Height is 6 feet 1 inch, weight is 214, BMI is 28. 2. Vital signs 110/67, pulse is 77, respirations 16, oxygen sat is 97%. 3. Pain score is 5/10. 4. Denies dizziness, does not need help walking or standing, has not fallen in the last 3 months. 5. The patient is not on any blood thinners or takes medicine for hypertension. 6. Opiate therapy is greater than 6 weeks; therefore, an opioid signed contract is on the chart. Risk assessment is low. Functional assessment is . 7. Recreational drug use, he denies. He is a former smoker and does not drink alcohol. According to the prescription monitoring system, he is due to fill his medications today, filling in a timely fashion. [place] [address] PAIN MANAGEMENT CONSULTATION Name: MADONNACHICA Room #: REG [facility].#: [id number] Admission: 08/26/20 Attend Phys: Judit Carrillo Discharge: Date of : 48 Report #: [id number] 90 MME. PHYSICAL EXAMINATION: GENERAL: This is an alert and orientated 69-year-old gentleman, who appears his stated age and has slightly flat affect today. HEENT: Normocephalic, mild exophthalmus. His conjunctivae is red bilaterally. Light touch allodynia is present on the left lateral aspect of his nose and discomfort on the right side of his face. He is tender to the touch. MUSCULOSKELETAL: Tenderness in the lumbosacral region with radiculopathy down bilateral legs. Lower extremity strength is symmetrical at 5/5. IMPRESSION: 1. Chronic intractable facial pain with trigeminal neuralgia. 2. Chronic depression. 3. Low back pain. 4. Constipation. 5. Management of medications using scheduled opioid medications. We reviewed the fact that opiate medications are being used to provide analgesia adequate to support activities of daily living, not attempting to achieve a specific pain score on the 0-10 Visual Analog Scale. The current opiate medications are providing sufficient analgesia to allow the patient to participate in activities of daily living. The patient is not exhibiting any aberrant behavior suggestive of drug diversion. The patient is not having any adverse reactions to medications. The patient is not suffering from daytime somnolence or mental acuity changes. The patient is managing opiate-induced constipation with appropriate nflh-qkk-ayqpmdy agents and dietary considerations. The patient was counseled on concern for caution with operating a motor vehicle while using opiate medications. A physical exam was performed and the patient's functional status was evaluated. All patients with back pain were advised against the bed rest greater than 4 days and were advised to return to normal activities. Pain score assessment was noted and the treatment plan was reviewed with the patient. All current medications, both prescribed and OTC were reviewed and reconciled on the electronic medical record. Tobacco screening was accomplished and smoking cessation was advised when indicated. BMI was noted and diet/exercise modification was recommended for all patients following outside normal parameters. I reviewed with the patient today their responsibilities to safeguard prescription medications, reviewed their responsibility to utilize medications only as prescribed by the physician. They are to seek and receive pain medications only from 1 physician group ([facility]). They are to use 1 pharmacy and keep the clinic informed if they change pharmacies. Their responsibilities include making followup visits in a timely fashion and to avoid [address] [address] PAIN MANAGEMENT CONSULTATION Name: CHICA PEACOCK Room #: REG [facility] Jonny#: [id number] Admission: 08/26/20 Attend Phys: Judit Carrillo Discharge: Date of : 48 Report #: [id number] abrupt discontinuation of medication usage. Their responsibilities further include bringing their medications (bottles from the pharmacy with residual pills) to the visit for possible confirmation of pill counts and the patient understands it is their responsibility to submit to random drug screens to ensure both that the medications prescribed are present, and that no other controlled substances are present. All prescriptions provided today were generated electronically. PLAN: 1. We discussed treatment options with the patient today. The patient is requesting an increase in his opioid medications or alternative options. He has discussed this stimulator implant with his ear, nose and throat doctor that would like to seek other options first in the form of medication management. I explained that he is at 90 morphine mEq. We had had this discussion in the past that we will not increase his opioids any further. We did discuss adjunct therapies. He is on a neuropathic in the form of Neurontin, but we may add amitriptyline. This is an antidepressant that may help slightly with his mood since he does suffer from depression, but also helps with neuropathic pain. We will start slowly at 10 mg at bedtime, increasing up to 30 mg total by increasing every 4-5 days. The patient was told of the side effects of this medication. Scripts sent for 90 pills with one additional refill. 2. We will continue him on his oxycodone 15 mg #120. 3. The patient to discuss the stimulator with his neurologist and I encouraged him not to totally discount that device, as he would have a trial before permanent implant to see if it is beneficial. The patient will return in 1 month. Appointment made prior to discharge. The patient is seen today in collaboration with Dr. Garcia. <ELECTRONICALLY SIGNED> By: Judit Carrillo 08/27/20 1345 [id number] Judit Carrillo /nt
== END ==
LOC: PAIN 06:57
PROVIDERS: ATTEND Clinical Nurse Specialist Adult Health
DX: G50.0 Trigeminal neuralgia (principal); M54.5 Low back pain; G50.1 Atypical facial pain; F32.9 Major depressive disorder, single episode, unspecified; K59.00 Constipation, unspecified; G89.29 Other chronic pain; F11.20 Opioid dependence, uncomplicated; Z88.8 Allergy status to other drugs, medicaments and biological substances; Z79.899 Other long term (current) drug therapy

== ENCOUNTER → 2020-09-23 | Outpatient (CLI) | payer OTHER, MEDICARE ==
[~2020-09-23] VITALS: Ht 185.4 cm; Wt 97.7 kg
[~2020-09-23] MED LIST changes: +CLONAZEPAM 0.50.5 M1 PO
[2020-09-23 09:19] VITALS: BP 120/76
--- NOTE | 2020-09-23 09:51 | NUR ---
Pain Clinic Assessment: 1. History of Osteoarthritis: denies History of Rheumatoid Arthritis: DENIES 2. Height: 6 ft. 1 in. 185.4 cm. Weight: 215.4 lb. oz. 97.705 kg. Patient's BMI: 28.4 3. Vital Signs: BP: 120/76 Pulse: 60 Resp: 14 Temp: 02 Sat: 100 ECG Mon: 4. Pain Intensity: 7 5. Fall Risk: Dizziness: N Needs help standing or walking: N Fallen in the last 3 months: N Fall risk comments: 6. Patient on Blood Thinner: None 7. History of Hypertension: N 8. Opioid Therapy greater than 6 weeks: Y Opiate Contract Signed: 07/02/20 9. Risk Assessment Tool Provided: 0-LOW RISK 10. Functional Assessment Tool: 11. Recreational Drug Use: Never Drug Type: Tobacco Use: Former Smoker Tobacco Type: Cigarettes Amount or Packs/day: < 1PPD How Many Years: 7 Alcohol Use: No Frequency: Quant:
--- NOTE | 2020-09-23 12:54 | HPC ---
[facility] [address] [place] [address] PAIN MANAGEMENT CONSULTATION Name: CHICA PEACOCK Room #: REG [facility] M..#: [id number] Admission: 09/23/20 Attend Phys: Judit Carrillo Discharge: Date of : 48 Report #: [id number] THIS REPORT FOR: cc: LUKE - No family physician/PCP FAM - No family physician/PCP Judit Carrillo ~ DATE OF SERVICE: 09/23/2020 CHIEF COMPLAINT: Atypical facial pain, trigeminal neuralgia. HISTORY OF PRESENT ILLNESS: This is a 70-year-old gentleman who returns to the pain clinic today for refill of his medications. Today, the patient reports having an increase in pain over the last month on the left side of his face he did. He is rating his pain score as 7/10 today. He reports going to Dr. Lucero when it was flared and had an injection, he believes this did help for several days and was able to break some of the intense pain cycle that he was experiencing. He does continue to complain of an aching, burning, numbness sensation. He believes that sleep does still aggravate his pain and his medications are beneficial, though not as helpful as they once were. Per his report, though he had wanted Valium, he has quit taking that and now transitioned back to clonazepam. This is written by his Ear, Nose and Throat doctor. He believes that clonazepam has been more beneficial for him. He denies any daytime somnolence or constipation as a result of his opioid medications. The patient does report he had stopped the amitriptyline, he felt that it was causing him to be drowsy in the morning. We did discuss the side effects again today of this medication. ALLERGIES: No known drug allergies. CURRENT LIST OF MEDICATIONS: Oxycodone 15 mg 4 times a day, clonazepam, gabapentin and ibuprofen. PQRS: 1. He denies any osteo or rheumatoid arthritis. 2. Height is 6 feet 1 inch, weight is 215, BMI is 28. 3. Vital signs 120/76, pulse is 60, respirations 14, oxygen sat is 100. 4. Pain score is 7/10. 5. Denies dizziness, does not need help walking or standing, has not fallen in the last 3 months. 6. The patient is not on any blood thinners or medicine for hypertension. 7. Opiate therapy is greater than 6 weeks; therefore, an opioid signed contract is on the chart. Risk assessment is low. Functional assessment is . 8. Recreational drug use, he denies. He is a former smoker and does not drink alcohol. [address] [address] PAIN MANAGEMENT CONSULTATION Name: CHICA PEACOCK Room #: REG [facility] Jonny#: [id number] Admission: 09/23/20 Attend Phys: Judit Carrillo Discharge: Date of : 48 Report #: [id number] According to the prescription monitoring system, he is due to fill his medications later this week as stated he is filling a benzodiazepine, which he feels is beneficial with his ongoing pain issues. His morphine mEq according to the CDC guidelines is 96. PHYSICAL EXAMINATION: GENERAL: This is alert and orientated 70-year-old gentleman who appears his stated age, placing his current pain score at 7/10. He has a flat affect. HEENT: Normocephalic, atraumatic. Extraocular eye muscles are intact. He has mild exophthalmus. Light touch allodynia is noted across the left lateral aspect of his nose and some discomfort on the right side as well. It is tender to the touch. His conjunctivae are red bilaterally. Mucous membranes are moist. IMPRESSION: 1. Chronic atypical facial pain, trigeminal neuralgia. 2. Chronic depression. 3. Management of opioid medications under terms of written opioid agreement. PLAN: 1. We discussed treatment options with the patient today. The patient has not followed up with a neurologist about a possible stimulator implant. He is unsure if he wants to have this implanted but is still willing to discuss options with the neurologist. I encouraged him to call his Ear, Nose and Throat as to the name of the referring neurologist and call their office for an appointment. 2. We will continue him on his oxycodone 15 mg, #120. This will be sent electronically by Dr. Luis Garcia. 3. I did encourage him to retry his amitriptyline, explaining that the daytime somnolence should go away the longer he is on the medication, also encouraging him to take it several hours before bedtime to help prevent this hungover sensation. 4. The patient states he will trial this medication again starting slow, increasing 1 tablet every week. 5. We did discuss the COVID vaccine. The patient is considering having this done and we did discuss places to call to try and schedule an appointment. 6. The patient is seen in collaboration with Dr. Luis Garcia. He will return in 1 month. <ELECTRONICALLY SIGNED> By: Judit Carrillo 09/23/20 1254 1115 1142 Judit Carrillo /chinedu
== END ==
LOC: PAIN 06:47
PROVIDERS: ATTEND Clinical Nurse Specialist Adult Health
DX: G50.0 Trigeminal neuralgia (principal); F32.9 Major depressive disorder, single episode, unspecified; Z79.891 Long term (current) use of opiate analgesic

== ENCOUNTER → 2020-10-21 | Outpatient (CLI) | payer OTHER, MEDICARE ==
[~2020-10-21] VITALS: Ht 185.4 cm; Wt 95.8 kg
[~2020-10-21] MED LIST changes: +CYMBALTA30 MG PO
[2020-10-21 10:25] VITALS: BP 108/68
--- NOTE | 2020-10-21 10:31 | NUR ---
Pain Clinic Assessment: 1. History of Osteoarthritis: denies History of Rheumatoid Arthritis: DENIES 2. Height: 6 ft. 1 in. 185.4 cm. Weight: 211.2 lb. oz. 95.800 kg. Patient's BMI: 27.9 3. Vital Signs: BP: 108/68 Pulse: 71 Resp: 16 Temp: 02 Sat: 100 ECG Mon: 4. Pain Intensity: 6 5. Fall Risk: Dizziness: N Needs help standing or walking: N Fallen in the last 3 months: N Fall risk comments: 6. Patient on Blood Thinner: None 7. History of Hypertension: N 8. Opioid Therapy greater than 6 weeks: Y Opiate Contract Signed: 07/02/20 9. Risk Assessment Tool Provided: 0-LOW RISK 10. Functional Assessment Tool: 11. Recreational Drug Use: Never Drug Type: Tobacco Use: Former Smoker Tobacco Type: Amount or Packs/day: How Many Years: Alcohol Use: No Frequency: Quant:
--- NOTE | 2020-10-22 09:04 | HPC ---
[facility] [address] [place] [address] PAIN MANAGEMENT CONSULTATION Name: CHICA PEACOCK Room #: REG [facility]..#: [id number] Admission: 10/21/20 Attend Phys: Judit Carrillo Discharge: Date of : 48 Report #: [id number] THIS REPORT FOR: cc: LUKE - No family physician/PCP FAM - No family physician/PCP Judit Carrillo ~ DATE OF SERVICE: 10/21/2020 CHIEF COMPLAINT: Atypical facial pain, trigeminal neuralgia. HISTORY OF PRESENT ILLNESS: This is a 70-year-old gentleman who returns to the pain clinic today for renewal of his oxycodone. Today, he is also requesting a possible trial of Cymbalta. He has heard that this medication is beneficial for neuropathy, which he does experience trigeminal neuropathy in his face and he is wondering if he would be able to trial this medication. He understands that he is on gabapentin, which does help with nerve pain as well and is willing to decrease that if he is able to try the Cymbalta. Today, the patient reports a pain score of 6/10, most significantly on the left side of his nose and he also has bilateral feet numbness and tingly sensation. He describes his facial pain as an aching buzzing sensation that is worse when he sleeps at night or upon awakening in the morning. He believes his medications are beneficial and has learned to live with this buzzing sensation and uses biofeedback as well. He states he has been having some issues with constipation and wondering about medications for that as well. ALLERGIES: No known drug allergies. CURRENT LIST OF MEDICATIONS: Oxycodone 15 mg 4 times a day, clonazepam 0.5 mg at bedtime, gabapentin 900 mg t.i.d. and ibuprofen. PQRS: 1. He denies any osteoarthritis or rheumatoid arthritis. 2. Height is 6 feet 1 inch, weight is 211, BMI is 27. 3. Vital Signs: 108/68, pulse of 71, respirations 16, oxygen sat is 100. 4. Pain score 6/10. 5. Denies dizziness, does not need assistance with ambulation, has not fallen in the last 3 months. 6. The patient is not on any blood thinners or medicine for hypertension. 7. Opioid therapy is greater than 6 weeks; therefore, an opioid signed contract is on the chart. Risk assessment is low. Functional assessment is . 8. Recreational drug use, he denies. He is a former smoker and does not drink alcohol. According to the prescription monitoring system, he is due to fill his medications later this week. His morphine milliequivalent is 90 [place] [address] PAIN MANAGEMENT CONSULTATION Name: CHICA PEACOCK Room #: REG [facility] Fuller#: [id number] Admission: 10/21/20 Attend Phys: Judit Carrillo Discharge: Date of : 48 Report #: [id number] take clonazepam as well. PHYSICAL EXAMINATION: GENERAL: This is alert and orientated 70-year-old gentleman who appears his stated age. He has a flat affect, rating his pain a 6/10 today. HEENT: Normocephalic, atraumatic. Extraocular eye muscles are intact. He has mild exophthalmus. On the left lateral aspect of his nose, he has light touch allodynia as noted. Does have tenderness on the right side as well. Conjunctivae are red. Mucous membranes are moist. He is wearing a mask. MUSCULOSKELETAL: Numbness in his bilateral feet. He walks with a normal gait. IMPRESSION: 1. Chronic atypical facial pain, trigeminal neuralgia. 2. Chronic depression. 3. Peripheral neuropathy. 4. Management of opioid medications under terms of written opioid agreement. We reviewed the fact that opiate medications are being used to provide analgesia adequate to support activities of daily living, not attempting to achieve a specific pain score on the 0-10 Visual Analog Scale. The current opiate medications are providing sufficient analgesia to allow the patient to participate in activities of daily living. The patient is not exhibiting any aberrant behavior suggestive of drug diversion. The patient is not having any adverse reactions to medications. The patient is not suffering from daytime somnolence or mental acuity changes. The patient is managing opiate-induced constipation with appropriate zipb-iiy-draobzb agents and dietary considerations. The patient was counseled on concern for caution with operating a motor vehicle while using opiate medications. A physical exam was performed and the patient's functional status was evaluated. All patients with back pain were advised against the bed rest greater than 4 days and were advised to return to normal activities. Pain score assessment was noted and the treatment plan was reviewed with the patient. All current medications, both prescribed and OTC were reviewed and reconciled on the electronic medical record. Tobacco screening was accomplished and smoking cessation was advised when indicated. BMI was noted and diet/exercise modification was recommended for all patients following outside normal parameters. I reviewed with the patient today their responsibilities to safeguard prescription medications, reviewed their responsibility to utilize medications only as prescribed by the physician. They are to seek and receive pain medications only from 1 physician group ([facility]). They are to use 1 pharmacy and keep the clinic informed if they change pharmacies. Their responsibilities include making followup visits in a timely fashion and to avoid abrupt discontinuation of medication usage. Their responsibilities further [address] [place] [address] PAIN MANAGEMENT CONSULTATION Name: CHICA PEACOCK Room #: REG [facility].#: [id number] Admission: 10/21/20 Attend Phys: Judit Carrillo Discharge: Date of : 48 Report #: [id number] include bringing their medications (bottles from the pharmacy with residual pills) to the visit for possible confirmation of pill counts and the patient understands it is their responsibility to submit to random drug screens to ensure both that the medications prescribed are present, and that no other controlled substances are present. All prescriptions provided today were generated electronically. PLAN: 1. We discussed treatment options with the patient today. The patient is wondering about Cymbalta to help with his neuropathy. The patient reports several family members have taken this medication and found it beneficial. He does report he has tried in the past with Dr. Lucero though he believes it was on a low dose. I explained to the patient that the Cymbalta helps with depression, which he does experience and is not taking any medications for as well as helps with neuropathy. I explained I will start him on a low dose of 30 mg, taking one tablet daily for 7 days, then may increase to 2 tablets if needed, continue 60 mg throughout the rest of the month. I explained that we may decrease his Neurontin at his next visit if he finds Cymbalta beneficial. Scripts sent for #49 tablets of his Cymbalta 30 mg. 2. We will have Dr. Izaiah Taylor send his oxycodone tomorrow. He is not due until Wednesday to fill this medication. 3. I discussed this case and collaborated with Dr. Luis Garcia via telephone today. <ELECTRONICALLY SIGNED> By: Judit Carrillo 10/22/20 0904 1147 1339 Judit Carrillo /nt
== END ==
LOC: PAIN 06:57
PROVIDERS: ATTEND Clinical Nurse Specialist Adult Health
DX: G50.0 Trigeminal neuralgia (principal); G50.1 Atypical facial pain; F32.9 Major depressive disorder, single episode, unspecified; G62.9 Polyneuropathy, unspecified; F11.20 Opioid dependence, uncomplicated

== ENCOUNTER → 2020-11-14 | Outpatient (CLI) | payer OTHER, MEDICARE ==
[~2020-11-14] VITALS: Ht 185.4 cm; Wt 93.3 kg
[2020-11-14 10:24] VITALS: BP 115/72
--- NOTE | 2020-11-14 10:34 | NUR ---
Pain Clinic Assessment: 1. History of Osteoarthritis: denies History of Rheumatoid Arthritis: DENIES 2. Height: 6 ft. 1 in. 185.4 cm. Weight: 205.8 lb. oz. 93.350 kg. Patient's BMI: 27.2 3. Vital Signs: BP: 115/72 Pulse: 84 Resp: 16 Temp: 02 Sat: 97 ECG Mon: 4. Pain Intensity: 5 5. Fall Risk: Dizziness: N Needs help standing or walking: N Fallen in the last 3 months: N Fall risk comments: 6. Patient on Blood Thinner: None 7. History of Hypertension: N 8. Opioid Therapy greater than 6 weeks: Y Opiate Contract Signed: 07/02/20 9. Risk Assessment Tool Provided: 0-LOW RISK 10. Functional Assessment Tool: 11. Recreational Drug Use: Never Drug Type: Tobacco Use: Former Smoker Tobacco Type: Amount or Packs/day: How Many Years: Alcohol Use: No Frequency: Quant:
== END ==
LOC: PAIN 06:41
PROVIDERS: ATTEND Clinical Nurse Specialist Adult Health
DX: G50.0 Trigeminal neuralgia (principal); G62.9 Polyneuropathy, unspecified; F32.9 Major depressive disorder, single episode, unspecified; Z79.899 Other long term (current) drug therapy; Z87.891 Personal history of nicotine dependence

== ENCOUNTER → 2020-12-16 | Outpatient (CLI) | payer OTHER, MEDICARE ==
[~2020-12-16] VITALS: Ht 185.4 cm; Wt 94.3 kg
[2020-12-16 09:50] VITALS: BP 144/78
--- NOTE | 2020-12-16 09:52 | NUR ---
Pain Clinic Assessment: 1. History of Osteoarthritis: denies History of Rheumatoid Arthritis: DENIES 2. Height: 6 ft. 1 in. 185.4 cm. Weight: 208.0 lb. oz. 94.348 kg. Patient's BMI: 27.4 3. Vital Signs: BP: 144/78 Pulse: 67 Resp: 16 Temp: 02 Sat: 98 ECG Mon: 4. Pain Intensity: 5 5. Fall Risk: Dizziness: N Needs help standing or walking: N Fallen in the last 3 months: N Fall risk comments: 6. Patient on Blood Thinner: None 7. History of Hypertension: N 8. Opioid Therapy greater than 6 weeks: Y Opiate Contract Signed: 07/02/20 9. Risk Assessment Tool Provided: 0-LOW RISK 10. Functional Assessment Tool: 11. Recreational Drug Use: Never Drug Type: Tobacco Use: Former Smoker Tobacco Type: Amount or Packs/day: How Many Years: Alcohol Use: No Frequency: Quant:
== END ==
LOC: PAIN 06:57
PROVIDERS: ATTEND Clinical Nurse Specialist Adult Health
DX: Z76.0 Encounter for issue of repeat prescription (principal); G50.0 Trigeminal neuralgia; G62.9 Polyneuropathy, unspecified; R51.9 Headache, unspecified; F32.9 Major depressive disorder, single episode, unspecified; Z79.899 Other long term (current) drug therapy; Z79.891 Long term (current) use of opiate analgesic; Z87.891 Personal history of nicotine dependence

== ENCOUNTER → 2021-01-09 | Outpatient (CLI) | payer OTHER, MEDICARE ==
[~2021-01-09] VITALS: Ht 185.4 cm; Wt 94.4 kg
[2021-01-09 10:38] VITALS: BP 122/73
--- NOTE | 2021-01-09 10:45 | NUR ---
Pain Clinic Assessment: 1. History of Osteoarthritis: denies History of Rheumatoid Arthritis: DENIES 2. Height: 6 ft. 1 in. 185.4 cm. Weight: 208.2 lb. oz. 94.439 kg. Patient's BMI: 27.5 3. Vital Signs: BP: 122/73 Pulse: 78 Resp: 14 Temp: 02 Sat: 100 ECG Mon: 4. Pain Intensity: 5 5. Fall Risk: Dizziness: N Needs help standing or walking: N Fallen in the last 3 months: N Fall risk comments: 6. Patient on Blood Thinner: None 7. History of Hypertension: N 8. Opioid Therapy greater than 6 weeks: Y Opiate Contract Signed: 07/02/20 9. Risk Assessment Tool Provided: 0-LOW RISK 10. Functional Assessment Tool: 11. Recreational Drug Use: Never Drug Type: Tobacco Use: Former Smoker Tobacco Type: Amount or Packs/day: How Many Years: Alcohol Use: No Frequency: Quant:
== END ==
LOC: PAIN 06:56
PROVIDERS: ATTEND Anesthesiology Pain Medicine
DX: G50.1 Atypical facial pain (principal)

== ENCOUNTER → 2021-02-10 | Outpatient (CLI) | payer OTHER, MEDICARE ==
[~2021-02-10] VITALS: Ht 185.4 cm; Wt 93.3 kg
[2021-02-10 10:03] VITALS: BP 125/70
--- NOTE | 2021-02-10 10:13 | NUR ---
Pain Clinic Assessment: 1. History of Osteoarthritis: denies History of Rheumatoid Arthritis: DENIES 2. Height: 6 ft. 1 in. 185.4 cm. Weight: 205.8 lb. oz. 93.350 kg. Patient's BMI: 27.2 3. Vital Signs: BP: 125/70 Pulse: 79 Resp: 14 Temp: 02 Sat: 100 ECG Mon: 4. Pain Intensity: 5 5. Fall Risk: Dizziness: N Needs help standing or walking: N Fallen in the last 3 months: N Fall risk comments: 6. Patient on Blood Thinner: None 7. History of Hypertension: N 8. Opioid Therapy greater than 6 weeks: Y Opiate Contract Signed: 07/02/20 9. Risk Assessment Tool Provided: 0-LOW RISK 10. Functional Assessment Tool: 11. Recreational Drug Use: Never Drug Type: Tobacco Use: Former Smoker Tobacco Type: Amount or Packs/day: How Many Years: Alcohol Use: No Frequency: Quant:
== END ==
LOC: PAIN 07:10
PROVIDERS: ATTEND Clinical Nurse Specialist Adult Health
DX: R51.9 Headache, unspecified (principal); G62.9 Polyneuropathy, unspecified; F32.9 Major depressive disorder, single episode, unspecified; Z79.891 Long term (current) use of opiate analgesic; Z79.899 Other long term (current) drug therapy

== ENCOUNTER → 2021-03-06 | Outpatient (CLI) | payer OTHER, MEDICARE ==
[~2021-03-06] VITALS: Ht 185.4 cm; Wt 93.2 kg
[2021-03-06 10:42] VITALS: BP 120/63
--- NOTE | 2021-03-06 10:49 | NUR ---
Pain Clinic Assessment: 1. History of Osteoarthritis: denies History of Rheumatoid Arthritis: DENIES 2. Height: 6 ft. 1 in. 185.4 cm. Weight: 205.4 lb. oz. 93.169 kg. Patient's BMI: 27.1 3. Vital Signs: BP: 120/63 Pulse: 61 Resp: 16 Temp: 02 Sat: 100 ECG Mon: 4. Pain Intensity: 4 5. Fall Risk: Dizziness: N Needs help standing or walking: N Fallen in the last 3 months: N Fall risk comments: 6. Patient on Blood Thinner: None 7. History of Hypertension: N 8. Opioid Therapy greater than 6 weeks: Y Opiate Contract Signed: 07/02/20 9. Risk Assessment Tool Provided: 0-LOW RISK 10. Functional Assessment Tool: 11. Recreational Drug Use: Never Drug Type: Tobacco Use: Former Smoker Tobacco Type: Amount or Packs/day: How Many Years: Alcohol Use: No Frequency: Quant:
== END ==
LOC: PAIN 06:55
PROVIDERS: ATTEND Anesthesiology Pain Medicine
DX: G89.29 Other chronic pain (principal); G50.1 Atypical facial pain; R43.9 Unspecified disturbances of smell and taste; R20.8 Other disturbances of skin sensation; F32.9 Major depressive disorder, single episode, unspecified; Z79.891 Long term (current) use of opiate analgesic; Z79.899 Other long term (current) drug therapy; Z87.891 Personal history of nicotine dependence; Z86.69 Personal history of other diseases of the nervous system and sense organs

== ENCOUNTER → 2021-04-03 | Outpatient (CLI) | payer OTHER, MEDICARE ==
[~2021-04-03] VITALS: Ht 182.9 cm; Wt 94.6 kg
[2021-04-03 11:16] VITALS: BP 123/72
--- NOTE | 2021-04-03 11:54 | NUR ---
Pain Clinic Assessment: 1. History of Osteoarthritis: denies History of Rheumatoid Arthritis: DENIES 2. Height: 6 ft. 0 in. 182.9 cm. Weight: 208.6 lb. oz. 94.620 kg. Patient's BMI: 28.3 3. Vital Signs: BP: 123/72 Pulse: 57 Resp: 14 Temp: 02 Sat: 100 ECG Mon: 4. Pain Intensity: 4 5. Fall Risk: Dizziness: N Needs help standing or walking: N Fallen in the last 3 months: N Fall risk comments: 6. Patient on Blood Thinner: None 7. History of Hypertension: N 8. Opioid Therapy greater than 6 weeks: Y Opiate Contract Signed: 07/02/20 9. Risk Assessment Tool Provided: 0-LOW RISK 10. Functional Assessment Tool: 11. Recreational Drug Use: Never Drug Type: Tobacco Use: Former Smoker Tobacco Type: Amount or Packs/day: How Many Years: Alcohol Use: No Frequency: Quant:
== END ==
LOC: PAIN 07:12
PROVIDERS: ATTEND Anesthesiology Pain Medicine
DX: R51.9 Headache, unspecified (principal); G62.9 Polyneuropathy, unspecified; G89.4 Chronic pain syndrome; F32.9 Major depressive disorder, single episode, unspecified; Z79.891 Long term (current) use of opiate analgesic; Z79.899 Other long term (current) drug therapy

== ENCOUNTER → 2021-05-01 | Outpatient (CLI) | payer OTHER, MEDICARE ==
[~2021-05-01] VITALS: Ht 182.9 cm; Wt 94.5 kg
[2021-05-01 09:51] VITALS: BP 118/68
== END ==
LOC: PAIN 09:11
PROVIDERS: ATTEND Clinical Nurse Specialist Adult Health
DX: G89.29 Other chronic pain (principal); G50.1 Atypical facial pain; F32.9 Major depressive disorder, single episode, unspecified; Z86.69 Personal history of other diseases of the nervous system and sense organs; Z79.899 Other long term (current) drug therapy

== ENCOUNTER → 2021-05-19 | Outpatient (CLI) | payer OTHER, MEDICARE ==
[~2021-05-19] VITALS: Ht 185.4 cm; Wt 94.8 kg
[~2021-05-19] MED LIST changes: +DULCOLAX10 MG PO
[2021-05-19 10:36] VITALS: BP 110/69
--- NOTE | 2021-05-19 10:49 | NUR ---
Pain Clinic Assessment: 1. History of Osteoarthritis: denies History of Rheumatoid Arthritis: DENIES 2. Height: 6 ft. 1 in. 185.4 cm. Weight: 209.0 lb. oz. 94.802 kg. Patient's BMI: 27.6 3. Vital Signs: BP: 110/69 Pulse: 67 Resp: 14 Temp: 02 Sat: 100 ECG Mon: 4. Pain Intensity: 3 5. Fall Risk: Dizziness: N Needs help standing or walking: N Fallen in the last 3 months: N Fall risk comments: 6. Patient on Blood Thinner: None 7. History of Hypertension: N 8. Opioid Therapy greater than 6 weeks: Y Opiate Contract Signed: 07/02/20 9. Risk Assessment Tool Provided: 0-LOW RISK 10. Functional Assessment Tool: 11. Recreational Drug Use: Never Drug Type: Tobacco Use: Former Smoker Tobacco Type: Amount or Packs/day: How Many Years: Alcohol Use: No Frequency: Quant:
== END ==
LOC: PAIN 07:04
PROVIDERS: ATTEND Clinical Nurse Specialist Adult Health
DX: G89.4 Chronic pain syndrome (principal); G62.9 Polyneuropathy, unspecified; F32.9 Major depressive disorder, single episode, unspecified; Z79.891 Long term (current) use of opiate analgesic; Z79.899 Other long term (current) drug therapy

== ENCOUNTER → 2021-06-19 | Outpatient (CLI) | payer OTHER, MEDICARE ==
[~2021-06-19] VITALS: Ht 185.4 cm; Wt 94.3 kg
[2021-06-19 14:03] VITALS: BP 116/73
--- NOTE | 2021-06-19 14:07 | NUR ---
Pain Clinic Assessment: 1. History of Osteoarthritis: denies History of Rheumatoid Arthritis: DENIES 2. Height: 6 ft. 1 in. 185.4 cm. Weight: 208.0 lb. oz. 94.348 kg. Patient's BMI: 27.4 3. Vital Signs: BP: 116/73 Pulse: 77 Resp: 16 Temp: 02 Sat: 99 ECG Mon: 4. Pain Intensity: 3 5. Fall Risk: Dizziness: N Needs help standing or walking: N Fallen in the last 3 months: N Fall risk comments: 6. Patient on Blood Thinner: None 7. History of Hypertension: N 8. Opioid Therapy greater than 6 weeks: Y Opiate Contract Signed: 07/02/20 9. Risk Assessment Tool Provided: 0-LOW RISK 10. Functional Assessment Tool: 11. Recreational Drug Use: Never Drug Type: Tobacco Use: Former Smoker Tobacco Type: Amount or Packs/day: How Many Years: Alcohol Use: No Frequency: Quant:
== END ==
LOC: PAIN 11:03
PROVIDERS: ATTEND Clinical Nurse Specialist Adult Health
DX: G89.29 Other chronic pain (principal); G50.1 Atypical facial pain; F32.A Depression, unspecified; G62.9 Polyneuropathy, unspecified

== ENCOUNTER → 2021-07-17 | Outpatient (CLI) | payer OTHER, MEDICARE ==
[~2021-07-17] VITALS: Ht 185.4 cm; Wt 96.5 kg
[2021-07-17 12:54] VITALS: BP 114/67
== END ==
LOC: PAIN 10:30
PROVIDERS: ATTEND Clinical Nurse Specialist Adult Health
DX: G89.29 Other chronic pain (principal); G50.1 Atypical facial pain; G62.9 Polyneuropathy, unspecified; F34.89 Other specified persistent mood disorders; Z79.899 Other long term (current) drug therapy

== ENCOUNTER → 2021-08-18 | Outpatient (CLI) | payer OTHER, MEDICARE ==
[~2021-08-18] VITALS: Ht 185.4 cm; Wt 95.4 kg
[2021-08-18 10:56] VITALS: BP 137/82
--- NOTE | 2021-08-18 11:14 | NUR ---
Pain Clinic Assessment: 1. History of Osteoarthritis: DENIES History of Rheumatoid Arthritis: DENIES 2. Height: 6 ft. 1 in. 185.4 cm. Weight: 210.4 lb. oz. 95.437 kg. Patient's BMI: 27.8 3. Vital Signs: BP: 137/82 Pulse: 72 Resp: 14 Temp: 02 Sat: 100 ECG Mon: 4. Pain Intensity: 4 5. Fall Risk: Dizziness: N Needs help standing or walking: N Fallen in the last 3 months: N Fall risk comments: 6. Patient on Blood Thinner: None 7. History of Hypertension: N 8. Opioid Therapy greater than 6 weeks: Y Opiate Contract Signed: 07/02/20 9. Risk Assessment Tool Provided: 0-LOW RISK 10. Functional Assessment Tool: 11. Recreational Drug Use: Never Drug Type: Tobacco Use: Former Smoker Tobacco Type: Amount or Packs/day: How Many Years: Alcohol Use: No Frequency: Quant:
== END ==
LOC: PAIN 09:29
PROVIDERS: ATTEND Clinical Nurse Specialist Adult Health
DX: G89.29 Other chronic pain (principal); G50.1 Atypical facial pain; G62.9 Polyneuropathy, unspecified; F34.89 Other specified persistent mood disorders; Z87.891 Personal history of nicotine dependence; Z79.899 Other long term (current) drug therapy

== ENCOUNTER → 2021-09-18 | Outpatient (CLI) | payer OTHER, MEDICARE ==
[~2021-09-18] VITALS: Ht 185.4 cm; Wt 98.2 kg
[2021-09-18 09:23] VITALS: BP 124/73
--- NOTE | 2021-09-18 09:25 | NUR ---
Pain Clinic Assessment: 1. History of Osteoarthritis: DENIES History of Rheumatoid Arthritis: DENIES 2. Height: 6 ft. 1 in. 185.4 cm. Weight: 216.6 lb. oz. 98.249 kg. Patient's BMI: 28.6 3. Vital Signs: BP: 124/73 Pulse: 69 Resp: 16 Temp: 02 Sat: 98 ECG Mon: 4. Pain Intensity: 4 5. Fall Risk: Dizziness: N Needs help standing or walking: N Fallen in the last 3 months: N Fall risk comments: 6. Patient on Blood Thinner: None 7. History of Hypertension: N 8. Opioid Therapy greater than 6 weeks: Y Opiate Contract Signed: 07/02/20 9. Risk Assessment Tool Provided: 0-LOW RISK 10. Functional Assessment Tool: 11. Recreational Drug Use: Never Drug Type: Tobacco Use: Former Smoker Tobacco Type: Amount or Packs/day: How Many Years: Alcohol Use: No Frequency: Quant:
== END ==
LOC: PAIN 08:17
PROVIDERS: ATTEND Clinical Nurse Specialist Adult Health
DX: G89.29 Other chronic pain (principal); G50.1 Atypical facial pain; G62.9 Polyneuropathy, unspecified; Z79.899 Other long term (current) drug therapy; Z87.891 Personal history of nicotine dependence

== ENCOUNTER → 2021-10-20 | Outpatient (CLI) | payer OTHER, MEDICARE ==
[~2021-10-20] VITALS: Ht 185.4 cm; Wt 98.4 kg
[2021-10-20 09:40] VITALS: BP 141/80
--- NOTE | 2021-10-20 09:41 | NUR ---
Pain Clinic Assessment: 1. History of Osteoarthritis: DENIES History of Rheumatoid Arthritis: DENIES 2. Height: 6 ft. 1 in. 185.4 cm. Weight: 217.0 lb. oz. 98.431 kg. Patient's BMI: 28.6 3. Vital Signs: BP: 141/80 Pulse: 75 Resp: 16 Temp: 02 Sat: 100 ECG Mon: 4. Pain Intensity: 4 5. Fall Risk: Dizziness: N Needs help standing or walking: N Fallen in the last 3 months: N Fall risk comments: 6. Patient on Blood Thinner: None 7. History of Hypertension: N 8. Opioid Therapy greater than 6 weeks: Y Opiate Contract Signed: 07/02/20 9. Risk Assessment Tool Provided: 0-LOW RISK 10. Functional Assessment Tool: 11. Recreational Drug Use: Never Drug Type: Tobacco Use: Former Smoker Tobacco Type: Amount or Packs/day: How Many Years: Alcohol Use: No Frequency: Quant:
== END ==
LOC: PAIN 10-16 14:35
PROVIDERS: ATTEND Clinical Nurse Specialist Adult Health
DX: G50.1 Atypical facial pain (principal); G90.09 Other idiopathic peripheral autonomic neuropathy; F32.9 Major depressive disorder, single episode, unspecified; Z79.899 Other long term (current) drug therapy